=== PATIENT | female | born 1935 | race Caucasian/White ===

== ENCOUNTER → 2017-02-13 | Outpatient (CLI) | payer OTHER, MEDICARE ==
[~2017-02-13] MED LIST: AMLO-110 PO; ASPEC81 PO; CALCTAB7 PO; CHOL100010 PO; CLOT1CRE3 TOP; DICL-201 PO; IBUP-1451 PO; LORA-741 PO; LOSA50TA6 PO; METO-551 PO; OMEG12006 PO; PARO10TA4 PO; PRLSR20 PO; TRAM-10 PO; [UNRECOGNIZED DRUG - OTHER] TOP
--- NOTE | 2017-02-13 16:29 | MAMMOGRAPHY REPORT ---
BILATERAL DIGITAL SCREENING MAMMOGRAM WITH CAD: 02/13/2017 CLINICAL HISTORY: Routine screening. Patient has no complaints. TECHNIQUE: Bilateral CC and MLO views were obtained. Current study was also evaluated with a Comput er Aided Detection (CAD) system. COMPARISON: Comparison is made to exams dated: 09/11/2014 mammogram, 02/11/2016 mammogram, 3 mammogram, 09/09/2012 mammogram, 09/06/2011 mammogram, and 09/05/2010 mammogram - [facility]. BREAST COMPOSITION: There are scattered areas of fibroglandular density in both breasts. FINDINGS: There are mild vascular calcifications and scattered benign-appearing calcifications in th e breasts. No suspicious mass, architectural distortion or cluster of suspicious microcalcification s is seen. IMPRESSION: ACR BI-RADS CATEGORY 1: NEGATIVE There is no mammographic evidence of malignancy. A 1 year screening mammogram is recommended. The p atient will receive written notification of the results. Approximately 10% of breast cancers are not detected with mammography. A negative mammographic repor t should not delay biopsy if a clinically suggestive mass is present. Nelida Youssef M.D. ay/:02/13/2017 15:20:46 Inspector Of Dredging: Lilian FINK(Nicole)(Jeri), [facility] letter sent: Normal 1/2 BI-RADS Code: ACR BI-RADS Category 1: Negative
== END | disposition home or self-care (01) ==
LOC: C.MAMM 13:32
PROVIDERS: ATTEND Internal Medicine
DX: Z12.31 Encounter for screening mammogram for malignant neoplasm of breast (principal)

== ENCOUNTER → 2017-03-02 | Outpatient (CLI) | payer OTHER, MEDICARE ==
--- NOTE | 2017-03-02 08:38 | DIAGNOSTIC IMAGING REPORT ---
THORACIC SPINE 3 VIEWS ROUTINE CLINICAL HISTORY: UNSPECIFIED ABDOMINAL PAIN COMPARISON STUDY: Lumbar spine radiograph January 07, 2016 and chest radiographs August 28, 2015. FINDINGS: A thoracolumbar spine fusion is partially imaged. Mild loss of height of T12 is unchanged. An old T5 compression fracture is noted. No acute thoracic spine fractures identified. Msog-ls-tmabwody multilevel degenerative disc disease is present. IMPRESSION: 1. No acute thoracic spine fracture or subluxation. 2. Partially imaged spinal fusion. Old T5 and T12 compression fractures. Electronically signed by: Serge Mosher M.D. 03/02/2017 8:37 AM Dictated Date/Time: 03/02/2017 8:10 AM
--- NOTE | 2017-03-02 08:55 | DIAGNOSTIC IMAGING REPORT ---
ULTRASOUND ABDOMEN COMPLETE CLINICAL HISTORY: Generalized abdominal pain. COMPARISON STUDY: Abdominal CT dated 04/13/2016. TECHNIQUE: Real-time, grayscale, and color flow sonography of the abdomen was performed. Images are reviewed in the transverse and longitudinal planes. FINDINGS: Liver: The liver is normal in size and echotexture. There is no intrahepatic biliary ductal dilatation. There are scattered calcified hepatic granulomas. The main portal vein is patent. Gallbladder: The gallbladder is surgically absent. The common bile duct measures up to 0.6 cm in diameter. Pancreas: Visualized portions of the pancreatic head and body are normal in appearance. The splenic vein is patent. Spleen: The spleen is normal in size and echotexture, measuring 8.1 cm in length. Kidneys: The kidneys demonstrate cortical atrophy. There is no hydronephrosis. The right kidney measures 10.3 cm in length and the left kidney measures 10.4 cm in length. No shadowing calculi are identified. Scattered renal cysts measure up to 1.6 cm. Abdominal vasculature: Visualized portions of the abdominal aorta are normal in caliber noting atherosclerotic irregularity. The IVC is normal as imaged. Ascites: None. IMPRESSION: 1. No acute sonographic abnormality is identified. 2. Status post cholecystectomy. Electronically signed by: Armin Howard M.D. 03/02/2017 8:54 AM Dictated Date/Time: 03/02/2017 8:52 AM
== END | disposition home or self-care (01) ==
LOC: C.ULTR 07:46
PROVIDERS: ATTEND Internal Medicine Gastroenterology
DX: R10.9 Unspecified abdominal pain (principal); Z90.49 Acquired absence of other specified parts of digestive tract; Z98.1 Arthrodesis status

== ENCOUNTER → 2018-02-15 | Outpatient (CLI) | payer OTHER ==
--- NOTE | 2018-02-18 08:09 | MAMMOGRAPHY REPORT ---
BILATERAL DIGITAL SCREENING MAMMOGRAM TOMOSYNTHESIS WITH CAD: 02/15/2018 CLINICAL HISTORY: Routine screening. Patient has no complaints. TECHNIQUE: Breast tomosynthesis in addition to standard 2D mammography was performed. Current study was also evaluated with a Computer Aided Detection (CAD) system. COMPARISON: Comparison is made to exams dated: 02/13/2017 mammogram, 02/11/2016 mammogram, 09/11/2014 mammogram, 09/10/2013 mammogram, 09/09/2012 mammogram, and 09/06/2011 mammogram - [facility]. BREAST COMPOSITION: There are scattered areas of fibroglandular density in both breasts. FINDINGS: No suspicious masses, calcifications, or areas of architectural distortion are noted in ei ther breast. There has been no significant interval change compared to prior exams. Scattered bilater al benign-appearing calcifications are not significantly changed. Note that the left MLO views are s omewhat suboptimal as the patient could not tolerate proper positioning due to a frozen left shoulder ; note that pectoralis muscle is not visualized on the MLO views. IMPRESSION: ACR BI-RADS CATEGORY 2: BENIGN There is no mammographic evidence of malignancy. A 1 year screening mammogram is recommended. The pa tient will receive written notification of the results. Approximately 10% of breast cancers are not detected with mammography. A negative mammographic report should not delay biopsy if a clinically suggestive mass is present. Yasmin Anton M.D. /:02/15/2018 13:48:40 [employer]: Romelia FINK(Nicole)(Jeri)(SHASHANK), [facility] letter sent: Normal 1/2 BI-RADS Code: ACR BI-RADS Category 2: Benign
== END | disposition home or self-care (01) ==
LOC: C.MAMM 13:19
PROVIDERS: ATTEND Internal Medicine
DX: Z12.31 Encounter for screening mammogram for malignant neoplasm of breast (principal)

== ENCOUNTER 2019-12-30 02:25 | Inpatient (IN) ==
[2019-12-30] MEDS ORDERED: SODIUM CHLORIDE 0.9% 500 ML IV ONE (02:44)
[2019-12-30 03:14] LABS: Basophils # (auto) 0.01 K/uL (0-0.2); Basophils % (auto) 0.1 %; Eosinophils # (auto) 0.16 K/uL (0-0.5); Eosinophils % (auto) 1.4 %; Hematocrit (blood only) 28.3 % (37-47); Hemoglobin 9.5 g/dL (12.0-16.0); Immature Granulocytes # (auto) 0.02 K/uL (0.00-0.02); Immature Granulocytes % (auto) 0.2 %; Lymphocytes # (auto) 0.78 K/uL (1.2-3.4); Lymphocytes % (auto) 6.6 %; Mean Corpuscular Hemoglobin 29.1 pg (25-34); Mean Corpuscular Hgb Conc 33.6 g/dL (32-36); Mean Corpuscular Volume 86.5 fL (80-100); Mean Platelet Volume 9.9 fL (7.4-10.4); Monocytes # (auto) 0.65 K/uL (0.11-0.59); Monocytes % (auto) 5.5 %; Neutrophils # (auto) 10.15 K/uL (1.4-6.5); Neutrophils % (auto) 86.2 %; Platelet Count 267 K/uL (130-400); RDW Coefficient of Variation 13.1 % (11.5-14.5); RDW Standard Deviation 41.6 fL (36.4-46.3); Red Blood Count 3.27 M/uL (4.2-5.4); White Blood Count 11.77 K/uL (4.8-10.8)
[2019-12-30 03:32] LABS: Albumin Level 2.7 gm/dl (3.4-5.0); BUN Creatinine Ratio 14.6 (10-20); Bilirubin Direct 0.1 mg/dl (0-0.2); Calcium 8.5 mg/dl (8.5-10.1); Creatinine Clr Calc Pharmacy 43.3 ml/min; Est GFR (African American) 82.3; Magnesium 1.3 mg/dl (1.8-2.4); Potassium 3.9 mmol/L (3.5-5.1)
[2019-12-30 03:43] LABS: Bilirubin,Total 0.7 mg/dl (0.2-1); Total Protein 6.8 gm/dl (6.4-8.2); Troponin I 0.716 ng/ml (0-0.045)
[2019-12-30] MEDS ORDERED: CEFEPIME 2,000 MG/20 ML VIAL IV STA (03:44)
[2019-12-30] MEDS ORDERED: AZITHROMYCIN 500 MG in DEXTROSE 5% 250 ML IV ONE (03:44)
[2019-12-30] MEDS ORDERED: MAGNESIUM SULFATE / D5W 1 GM/100 ML BAG IV ONE (03:46)
[2019-12-30] MEDS ORDERED: ASPIRIN 81 MG CHEW PO STA (03:46)
[2019-12-30 04:17] LABS: Influenza A virus by PCR Neg for Influ A (Neg); Influenza B virus by PCR Neg for Influ B (Neg)
[2019-12-30 05:23] LABS: Appearance Urine Clear (Clear); Bacteria Urine Automated Negative (Negative); Bilirubin Urine Negative (Negative); Blood Urine Negative (Negative); Color Urine Yellow; Epithelial Cell Urine Auto >30 /lpf (0-5); Glucose Urine UA Negative (Negative); Ketones Urine Negative (Negative); Leukocyte Esterase Urine Trace (Negative); Nitrite Urine Negative (Negative); Protein Urine Trace (Negative); RBC Urine Automated 0-4 /hpf (0-4); Specific Gravity Urine 1.012 (1.000-1.030); Urobilinogen Urine Negative (Negative)
[2019-12-30] MEDS ORDERED: ACETAMINOPHEN 325 MG TAB PO PRN (05:46)
[2019-12-30] MEDS ORDERED: MAGNESIUM HYDROXIDE SUSP 30 ML UDC PO PRN (05:46)
[2019-12-30] MEDS ORDERED: METOPROLOL SUCC 25MG EXT REL TAB PO STA (05:46)
[2019-12-30] MEDS ORDERED: LORazepam 0.5 MG TAB PO PRN (05:46)
[2019-12-30] MEDS ORDERED: ONDANSETRON INJ 2 MG/ML 2 ML VIAL IV PRN (05:46)
[2019-12-30] MEDS ORDERED: NITROGLYCERIN SL 0.4 MG/TAB TAB SL PRN (05:46)
[2019-12-30] MEDS ORDERED: ALUMINUM/MAGNESIUM SUSP 30 ML UDC PO PRN (05:46)
[2019-12-30] MEDS ORDERED: Heparin IV Low Dose *NO* Bolus IV ONE (05:46)
--- NOTE | 2019-12-30 06:59 | History & Physical Report ---
Date of Service December 30, 2019 Assessment & Plan (1) Right lower lobe pneumonia: Patient was noted to have temperature 100.9, along with mild hypoxia. Continue cefepime IV and azithromycin IV begun in the ED. Nasal cannula oxygen, titrate to keep pulse ox 94 to 95%. Present on Admission?: Yes (2) Elevated troponin: Elevated troponin/lateral T wave inversions on EKG/CHF/volatile hypertension- The patient will be admitted to telemetry for serial cardiac enzymes, serial EKG's, cardiac rhythm monitoring and a 2-D echocardiogram with Dopplers. Start heparin drip low-dose without bolus, and follow per protocol. Hold labetalol, as she reports that she feels worse on labetalol and felt better on metoprolol. She reports that she had been on clonidine in the past also, but again reports that she feels better on metoprolol Give metoprolol succinate 25 mg p.o. x1 now, and then start 50 mg p.o. twice daily in the a.m. Continue losartan 50 mg p.o. twice daily. Continue aspirin 81 mg daily. Consult cardiology. Present on Admission?: Yes (3) Acute electrocardiogram changes: See above Present on Admission?: Yes (4) CHF (congestive heart failure): See above Present on Admission?: Yes (5) Hypomagnesemia: Magnesium 1.3 upon admission. Replace both orally and IV. Repeat laboratories in a.m. Present on Admission?: Yes (6) Hyperlipidemia LDL goal <70: Continue atorvastatin 80 mg daily Present on Admission?: Yes (7) GERD (gastroesophageal reflux disease): Change omeprazole to famotidine 20 mg p.o. every 12 hours. Question whether the omeprazole may be contributing to her low magnesium Present on Admission?: Yes (8) Depression: Continue Paxil 10 mg p.o. daily Present on Admission?: Yes (9) Insomnia: Continue lorazepam 0.5 mg p.o. at bedtime as needed Present on Admission?: Yes History of Present Illness Chief Complaint: The patient presents to the emergency department with family, with generalized weakness, fatigue, chest discomfort and abdominal discomfort, with volatile blood pressure. Primary Care Provider: Bhavesh Jack MD The patient is an 84-year-old female with a past medical history including hyperlipidemia, CHF, hypomagnesemia, lumbar stenosis with neurogenic claudication, thoracic compression fracture and insomnia. She presents to the emergency department the above symptoms. In the ED she had a temperature of 100.9, with the patient was unaware of. She reports that she has had difficulty adjusting to some recent blood pressure changes, and traces her recent issues with blood pressure volatility back to timing around the time of Carotid Doppler studies that were performed. Allergies Allergy/AdvReac Type Severity Reaction Status Date / Time adhesive Allergy Unknown RED Verified 12/30/19 02:29 atenolol Allergy Unknown Unknown Verified 12/30/19 02:29 codeine Allergy Unknown Unknown Verified 12/30/19 02:29 indapamide Allergy Unknown Unknown Verified 12/30/19 02:29 Iodinated Contrast Media Allergy Unknown ` Verified 12/30/19 02:29 lisinopril Allergy Unknown Unknown Verified 12/30/19 02:29 nickel Allergy Unknown ALLERGY TO Verified 12/30/19 02:29 "METAL" nifedipine Allergy Unknown Unknown Verified 12/30/19 02:29 verapamil Allergy Unknown Unknown Verified 12/30/19 02:29 hydromorphone AdvReac Severe HALLUCINATI Verified 12/30/19 02:29 ON morphine AdvReac Unknown NAUSEA Verified 12/30/19 02:29 Home Medications Home Medications Medication Instructions Recorded Confirmed Type aspirin [Aspir-Low] 81 mg PO DAILY 10/04/18 12/30/19 History calcium carbonate-vitamin D3 2 tab PO DAILY 10/04/18 12/30/19 History [Caltrate 600 + D] ibuprofen 200 mg PO DAILY PRN 10/04/18 12/30/19 History lorazepam [Ativan] 0.5 mg PO HS PRN 10/04/18 12/30/19 History losartan [Cozaar] 50 mg PO BID 10/04/18 12/30/19 History omeprazole 20 mg PO DAILY 10/04/18 12/30/19 History paroxetine HCl [Paxil] 10 mg PO DAILY 10/04/18 12/30/19 History atorvastatin 80 mg PO DAILY 12/30/19 12/30/19 History labetalol 100 mg PO BID 12/30/19 12/30/19 History Past Med/Surg History Medical History Abdominal hernia (Chronic) Lumbar stenosis with neurogenic claudication (Acute) Right leg pain (Acute) Thoracic compression fracture (Acute) Surgical History Hx of cholecystectomy (Resolved) Family History Other FHx: heart disease FHx: hypertension Social History Preferred Language: Arabic Communication Ability: Effective Heavy Line Technician Required: No Beliefs That Will Affect Care: None Current Living Situation: Alone Other Information That Helps Us Care for You: No Feels Safe at Home: Yes Safety Concerns: Feels Safe At This Time Smoking Status: Never smoker Do You Dip or Chew Tobacco: No ; Second Hand Exposure: No ; Hx Alcohol Use: No Hx Substance Use: No Review of Systems Review of Systems: The patient denies chest pain, palpitations, shortness of breath, dyspnea on exertion, cough, lower extremity swelling, sore throat, fevers, chills, sweats, vomiting, diarrhea , constipation, blood in urine or stool, dysuria, urinary frequency or urgency, headache, loss of consciousness, rash, abnormal bruising or bleeding, focal weakness, numbness or tingling in arms or legs, generalized arthralgias or myalgias, or night sweats. The review of systems is otherwise negative other than for that already noted above, and at least 10 systems have been reviewed. Physical Exam Physical Exam: The patient is awake, alert and oriented 3, well developed and well nourished, normocephalic and atraumatic, lying in bed and in no acute distress. HEENT--PERRL, EOMI, mucous membranes and oropharynx dry. Neck--supple. No JVD. No bruits. Thyroid normal, trachea midline, no adenopathy. Heart--normal S1 and S2. No murmurs, rubs or gallops. Lungs--decreased breath sounds at the bases bilaterally. No respiratory distress, no accessory muscle use. Abdomen--normal bowel sounds and soft. Nontender. Nondistended. Extremities--no cyanosis or clubbing. No edema. Dermatologic--normal skin turgor, normal color, no abnormal lymph nodes, no rash. Neurologic--cranial nerves II through XII grossly intact. Rheumatologic--normal range of motion. Psychiatric--normal affect. Results & Data Vital Signs (Past 12 Hours) Vital Signs Temp Pulse Resp BP Pulse Ox 12/30/19 05:10 98.2 F 20 92 12/30/19 04:59 80 18 156/67 H 95 12/30/19 04:30 84 27 H 139/98 95 12/30/19 04:00 85 26 H 178/87 H 94 12/30/19 03:31 83 23 167/70 H 96 12/30/19 03:30 83 27 H 96 12/30/19 03:12 92 12/30/19 03:00 86 26 H 160/66 H 96 12/30/19 02:35 88 31 H 93 12/30/19 02:33 100.9 F H 88 20 188/90 H 94 Laboratory Results Laboratory Results WBC 11.77 K/uL (4.8-10.8) H 12/30/19 03:02 RBC 3.27 M/uL (4.2-5.4) L 12/30/19 03:02 Hgb 9.5 g/dL (12.0-16.0) L 12/30/19 03:02 Hct 28.3 % (37-47) L 12/30/19 03:02 MCV 86.5 fL (80-100) 12/30/19 03:02 MCH 29.1 pg (25-34) 12/30/19 03:02 MCHC 33.6 g/dL (32-36) 12/30/19 03:02 RDW Std Deviation 41.6 fL (36.4-46.3) 12/30/19 03:02 RDW Coeff of Shara 13.1 % (11.5-14.5) 12/30/19 03:02 Plt Count 267 K/uL (130-400) 12/30/19 03:02 MPV 9.9 fL (7.4-10.4) 12/30/19 03:02 Immature Gran % (Auto) 0.2 % 12/30/19 03:02 Neut % (Auto) 86.2 % 12/30/19 03:02 Lymph % (Auto) 6.6 % 12/30/19 03:02 [place] % (Auto) 5.5 % 12/30/19 03:02 Eos % (Auto) 1.4 % 12/30/19 03:02 Baso % (Auto) 0.1 % 12/30/19 03:02 Immature Gran # (Auto) 0.02 K/uL (0.00-0.02) 12/30/19 03:02 Neut # (Auto) 10.15 K/uL (1.4-6.5) H 12/30/19 03:02 Lymph # (Auto) 0.78 K/uL (1.2-3.4) L 12/30/19 03:02 [place] # (Auto) 0.65 K/uL (0.11-0.59) H 12/30/19 03:02 Eos # (Auto) 0.16 K/uL (0-0.5) 12/30/19 03:02 Baso # (Auto) 0.01 K/uL (0-0.2) 12/30/19 03:02 Sodium 136 mmol/L (136-145) 12/30/19 03:02 Potassium 3.9 mmol/L (3.5-5.1) 12/30/19 03:02 Chloride 105 mmol/L (98-107) 12/30/19 03:02 Carbon Dioxide 26 mmol/L (21-32) 12/30/19 03:02 Anion Gap 5.0 (3-11) 12/30/19 03:02 BUN 11 mg/dl (7-18) 12/30/19 03:02 Creatinine 0.76 mg/dl (0.6-1.2) 12/30/19 03:02 Est Cr Clr Drug Dosing 43.3 ml/min 12/30/19 03:02 Est GFR ( Amer) 82.3 12/30/19 03:02 Est GFR (Non-Af Amer) 71.0 12/30/19 03:02 BUN/Creatinine Ratio 14.6 (10-20) 12/30/19 03:02 Glucose 123 mg/dl (70-99) H 12/30/19 03:02 Lactate 0.8 mmol/L (0.4-2.0) 12/30/19 03:15 Calcium 8.5 mg/dl (8.5-10.1) 12/30/19 03:02 Magnesium 1.3 mg/dl (1.8-2.4) L 12/30/19 03:02 Total Bilirubin 0.7 mg/dl (0.2-1) 12/30/19 03:02 Direct Bilirubin 0.1 mg/dl (0-0.2) 12/30/19 03:02 AST 14 U/L (15-37) L 12/30/19 03:02 ALT 19 U/L (12-78) 12/30/19 03:02 Alkaline Phosphatase 52 U/L (45-117) 12/30/19 03:02 Troponin I 0.716 ng/ml (0-0.045) H* 12/30/19 03:02 NT-Pro-B Natriuret Pep 6138 pg/ml (0-1800) H 12/30/19 03:02 Total Protein 6.8 gm/dl (6.4-8.2) 12/30/19 03:02 Albumin 2.7 gm/dl (3.4-5.0) L 12/30/19 03:02 Urine Color Yellow 12/30/19 04:55 Urine Appearance Clear (Clear) 12/30/19 04:55 Urine pH 7.0 (4.5-7.5) 12/30/19 04:55 Ur Specific [place] 1.012 (1.000-1.030) 12/30/19 04:55 Urine Protein Trace (Negative) H 12/30/19 04:55 Urine Glucose (UA) Negative (Negative) 12/30/19 04:55 Urine Ketones Negative (Negative) 12/30/19 04:55 Urine Blood Negative (Negative) 12/30/19 04:55 Urine Nitrite Negative (Negative) 12/30/19 04:55 Urine Bilirubin Negative (Negative) 12/30/19 04:55 Urine Urobilinogen Negative (Negative) 12/30/19 04:55 Ur Leukocyte Esterase Trace (Negative) H 12/30/19 04:55 Urine WBC (Auto) 1-5 /hpf (0-5) 12/30/19 04:55 Urine RBC (Auto) 0-4 /hpf (0-4) 12/30/19 04:55 U Hyaline Cast (Auto) 1-5 /lpf (0-5) 12/30/19 04:55 U Epithel Cells (Auto) >30 /lpf (0-5) H 12/30/19 04:55 Urine Bacteria (Auto) Negative (Negative) 12/30/19 04:55 Influenza Type A (PCR) Neg for Influ A (Neg) 12/30/19 03:15 Influenza Type B (PCR) Neg for Influ B (Neg) 12/30/19 03:15 Code Status & VTE Plan Code Status Full code VTE Prophylaxis Plan VTE Prophylaxis will be ordered: Yes PG Care Time/CCT Total # of Minutes Spent Total Time Spent with Patient: Total time spent is greater than 50% in coordination of care (as documented) at patient's floor/unit and/or counseling patient: Coding Level of Care Code 59191 Initial Inpt Care Lvl 3 Diagnoses Right lower lobe pneumonia J18.9 Pneumonia type: due to unspecified organism Elevated troponin R79.89 Acute electrocardiogram changes R94.31 CHF (congestive heart failure) I50.9 Heart failure chronicity: unspecified Heart failure type: unspecified Hypomagnesemia E83.42 Hyperlipidemia LDL goal <70 E78.5 GERD (gastroesophageal reflux disease) K21.9 Depression F32.9 Insomnia G47.00 (1) Right lower lobe pneumonia Pneumonia type: due to unspecified organism Qualified Code(s): J18.9 - Pneumonia, unspecified organism (2) CHF (congestive heart failure) Heart failure chronicity: unspecified Heart failure type: unspecified Qualified Code(s): I50.9 - Heart failure, unspecified
[2019-12-30] MEDS: MAGNESIUM SULFATE / D5W 1 GM/100 ML BAG IV SCH ×2 (07:35→08:40)
--- NOTE | 2019-12-30 07:39 | XRay Report ---
SINGLE VIEW CHEST CLINICAL HISTORY: Dyspnea. FINDINGS: An AP, portable, upright chest radiograph is compared to study dated 01/07/2016. The examina tion is degraded by portable technique, apical lordotic positioning, and patient rotation. The heart is enlarged noting atherosclerotic calcification of the thoracic aorta. There is pulmonary vascular c ongestion. Dependent airspace opacities likely represent atelectasis. Trace pleural effusions are marito pected. No pneumothorax is seen. The skeletal structures are osteopenic. The bony thorax is grossly i ntact. Advanced degenerative change and deformity is noted in the left shoulder. Degenerative change is also seen in the thoracic spine. Fusion hardware is noted at the thoracolumbar junction. IMPRESSION: Cardiomegaly with evidence of congestive failure. ACT 112: Negative or not required by law. Electronically signed by: Armin Howard M.D. 12/30/2019 7:37 AM
[2019-12-30] MEDS ORDERED: HEPARIN SODIUM/DEXTROSE 25,000 UNITS/500 ML BAG IV SCH (08:00)
[2019-12-30] MEDS: Heparin IV Low Dose *NO* Bolus IV SCH ×2 (08:04→08:05)
[2019-12-30] MEDS ORDERED: FUROSEMIDE 40 MG in SYRINGE 0 ML IV ONE (08:15)
[2019-12-30] MEDS: CALCIUM 600MG + VIT D 400 IU TAB PO SCH (08:48)
[2019-12-30] MEDS: ATORVASTATIN 40 MG TAB PO SCH (08:49)
[2019-12-30] MEDS: LOSARTAN POTASSIUM 50 MG TAB PO SCH ×2 (08:49→20:42)
[2019-12-30] MEDS: FAMOTIDINE 20 MG TAB PO SCH ×2 (08:50→20:42)
[2019-12-30] MEDS: PARoxetine HCL 10 MG TAB PO SCH (08:50)
[2019-12-30] MEDS ORDERED: ASPIRIN 81 MG ECTAB PO SCH (09:00)
[2019-12-30] MEDS: METOPROLOL SUCC 50MG EXT REL TAB PO SCH ×2 (10:03→20:42)
--- NOTE | 2019-12-30 10:57 | Electrocardiogram Report ---
Test Reason : Blood Pressure : / mmHG Vent. Rate : 088 BPM Atrial Rate : 088 BPM P-R Int : 150 ms QRS Dur : 084 ms QT Int : 372 ms P-R-T Axes : 036 007 002 degrees QTc Int : 450 ms Normal sinus rhythm Possible Anterior infarct , age undetermined Abnormal ECG When compared with ECG of 10-JUN-2019 15:24, Nonspecific T wave abnormality now evident in Inferior leads T wave inversion now evident in Anterolateral leads Confirmed by Yakov Pedersen ([id number]) on 12/30/2019 10:57:20 AM Referred By: REFERRED SELF Confirmed By:Yakov Pedersen
--- NOTE | 2019-12-30 11:35 | Cardiology Consultation ---
Date of Consultation December 30, 2019 Assessment & Plan (1) Elevated troponin: Minor troponin elevation likely a supply demand mismatch. She was significantly hypertensive at time of presentation. Would check an echocardiogram. (2) Abnormal ECG: Anterolateral T-wave abnormality identified at time of presentation. As above, would check an echocardiogram. Suspect she has a degree of left ventricular hypertrophy. (3) Hyperlipidemia LDL goal <70: Continue atorvastatin. (4) Vascular disease: She has a history of both cerebrovascular and peripheral vascular disease. Continue medical management. History of Present Illness Attending Physician: Brandon Velazco DO History of Present Illness Mrs. Ramon is an 84-year-old female admitted earlier today with shortness of breath and the community-acquired pneumonia. Her troponin I level was mildly, however, this consultation was ordered. Of note, patient follows with Dr. Jack an outpatient. The patient was in her usual state of health until the morning prior to admission when she began to note a cough and some exertional dyspnea. Her symptoms continued throughout the day, however, she was able to go to bed last evening without difficulty. Specifically, she was able lie supine using just 1 pillow. However, she awoke at 2:30 a.m. with dyspnea and cough. She presented to the emergency room for further care. On arrival here, the patient was placed on supplemental oxygen and was noted to have a blood pressure of 190s over 90s. Chest x-ray revealed a right lower lobe pneumonia and she was started on intravenous antibiotics. A troponin level was mildly elevated at 0.716. The patient has never experienced exertional chest pain. She further denies syncope, presyncope, PND, orthopnea, palpitations, lower extremity edema, and claudication. The patient has never known of a cardiac event. She has never had a cardiac catheterization. Currently, patient is resting comfortably in bed and without complaints. Past medical and surgical history 1. Hypertension 2. Hypercholesterolemia 3. Presumed diastolic CHF 4. Peripheral vascular disease 5. Chronic renal failure 6. Cerebral vascular disease-50% left, 70% right carotid stenoses 7. Depression 8. Bilateral TKR 9. Cholecystectomy 10. Tonsillectomy Social history , lives alone Retired nurse No tobacco or alcohol Family history Mother at 86 from a CVA Father at 80 from emphysema Brother at 85 from an [place] Review of systems A 10 point review of systems was negative except for that described above. Allergies Allergy/AdvReac Type Severity Reaction Status Date / Time adhesive Allergy Unknown RED Verified 12/30/19 02:29 atenolol Allergy Unknown Unknown Verified 12/30/19 02:29 codeine Allergy Unknown Unknown Verified 12/30/19 02:29 indapamide Allergy Unknown Unknown Verified 12/30/19 02:29 Iodinated Contrast Media Allergy Unknown ` Verified 12/30/19 02:29 lisinopril Allergy Unknown Unknown Verified 12/30/19 02:29 nickel Allergy Unknown ALLERGY TO Verified 12/30/19 02:29 "METAL" nifedipine Allergy Unknown Unknown Verified 12/30/19 02:29 verapamil Allergy Unknown Unknown Verified 12/30/19 02:29 Latex, Natural Rubber Allergy Rash Verified 12/30/19 07:32 hydromorphone AdvReac Severe HALLUCINATI Verified 12/30/19 02:29 ON morphine AdvReac Unknown NAUSEA Verified 12/30/19 02:29 Home Medications Home Medications Medication Instructions Recorded Confirmed Type aspirin [Aspir-Low] 81 mg PO DAILY 10/04/18 12/30/19 History calcium carbonate-vitamin D3 2 tab PO DAILY 10/04/18 12/30/19 History [Caltrate 600 + D] ibuprofen 200 mg PO DAILY PRN 10/04/18 12/30/19 History lorazepam [Ativan] 0.5 mg PO HS PRN 10/04/18 12/30/19 History losartan [Cozaar] 50 mg PO BID 10/04/18 12/30/19 History omeprazole 20 mg PO DAILY 10/04/18 12/30/19 History paroxetine HCl [Paxil] 10 mg PO DAILY 10/04/18 12/30/19 History atorvastatin 80 mg PO DAILY 12/30/19 12/30/19 History labetalol 100 mg PO BID 12/30/19 12/30/19 History Patient History Medical History (Updated 12/30/19 @ 12:02 by Yakov Pedersen MD) Abdominal hernia (Chronic) Depression GERD (gastroesophageal reflux disease) Hyperlipidemia LDL goal <70 Insomnia Lumbar stenosis with neurogenic claudication (Acute) Right leg pain (Acute) Thoracic compression fracture (Acute) Surgical History Hx of cholecystectomy (Resolved) Family History Other FHx: heart disease FHx: hypertension Social History Preferred Language: Maltese Communication Ability: Effective Gizzard Skin Remover Required: No Beliefs That Will Affect Care: None Current Living Situation: Alone Other Information That Helps Us Care for You: No Feels Safe at Home: Yes Safety Concerns: Feels Safe At This Time Smoking Status: Never smoker Do You Dip or Chew Tobacco: No ; Second Hand Exposure: No ; Hx Alcohol Use: No Hx Substance Use: No Physical Exam Physical Exam: In general this is a well-developed well-nourished white female in no acute distress. HEENT exam is negative. Neck is supple with full carotid upstrokes. There are no obvious carotid bruits. Jugular venous pressure is flat at 90. There is no thyromegaly. Cardiovascular exam reveals a regular rhythm with a normal S1 and S2. Heart sounds are distant. No obvious murmurs. Lungs note crackles at the right base. Abdomen is soft and nontender without bruits. Extremities reveal intact radial artery pulses bilaterally. There is no peripheral edema. Results & Data ([facility]) Vital Signs (Past 12 Hours) Vital Signs Temp Pulse Pulse Resp BP BP Pulse Ox 12/30/19 11:01 36.7 C 72 18 152/74 H 96 12/30/19 10:00 71 143/60 H 12/30/19 08:27 36.9 C 76 18 133/74 97 12/30/19 07:29 81 12/30/19 07:22 84 12/30/19 05:10 36.8 C 20 92 12/30/19 04:59 80 18 156/67 H 95 12/30/19 04:30 84 27 H 139/98 95 12/30/19 04:00 85 26 H 178/87 H 94 12/30/19 03:31 83 23 167/70 H 96 12/30/19 03:30 83 27 H 96 12/30/19 03:12 92 12/30/19 03:00 86 26 H 160/66 H 96 12/30/19 02:35 88 31 H 93 12/30/19 02:33 38.3 C H 88 20 188/90 H 94 Laboratory Results CBC notes hemoglobin of 9.5, hematocrit of 28.3, white count 11.7, and platelet count of 129231. Electrolytes note a sodium of 136, potassium 3.9, chloride 105, bicarb 26, BUN 11, creatinine 0.76, glucose of 123. Initial troponin was 0.716 with a follow-up of 0.764. ProBNP is elevated 6138. Diagnostic Findings EKG notes normal sinus rhythm and an anterolateral T-wave abnormality. Chest x- ray notes a right lower lobe infiltrate. PG Care Time/CCT Total # of Minutes Spent Total Time Spent with Patient: Total time spent is greater than 50% in coordination of care (as documented) at patient's floor/unit and/or counseling patient: Coding Level of Care Code 40390 Initial Inpt Care Lvl 3 Diagnoses Elevated troponin R79.89 Abnormal ECG R94.31 Hyperlipidemia LDL goal <70 E78.5 Vascular disease I99.9
--- NOTE | 2019-12-30 12:23 | XCELERA ---
[id number] \\[email or web address]_[email or web address]\[id number]
[2019-12-30 13:57] LABS: Basophils # (auto) 0.02 K/uL (0-0.2); Basophils % (auto) 0.2 %; Eosinophils # (auto) 0.26 K/uL (0-0.5); Eosinophils % (auto) 2.5 %; Hematocrit (blood only) 27.6 % (37-47); Hemoglobin 9.3 g/dL (12.0-16.0); Immature Granulocytes # (auto) 0.03 K/uL (0.00-0.02); Immature Granulocytes % (auto) 0.3 %; Lymphocytes # (auto) 1.19 K/uL (1.2-3.4); Lymphocytes % (auto) 11.5 %; Mean Corpuscular Hemoglobin 29.5 pg (25-34); Mean Corpuscular Hgb Conc 33.7 g/dL (32-36); Mean Corpuscular Volume 87.6 fL (80-100); Mean Platelet Volume 9.7 fL (7.4-10.4); Monocytes # (auto) 0.67 K/uL (0.11-0.59); Monocytes % (auto) 6.5 %; Neutrophils # (auto) 8.19 K/uL (1.4-6.5); Platelet Count 268 K/uL (130-400); RDW Standard Deviation 42.1 fL (36.4-46.3); Red Blood Count 3.15 M/uL (4.2-5.4); White Blood Count 10.36 K/uL (4.8-10.8)
--- NOTE | 2019-12-30 14:29 | History & Physical Bridge Note ---
Date of Service December 30, 2019 History & Physical Bridge Note I have examined the patient, reviewed the History & Physical and in the interval since the performance of the History & Physical I have noted the following changes of clinical significance: patient feeling better, breathing easier, able to lay flat says that she started to feel short of breath yesterday, got worse last night says that her weight was 147lbs two weeks ago, up to 152lbs more recently never noticed edema she did not have a cough and although a temperature of 38.3 was recorded, she did not feel feverish symptoms seem to fit more with acute heart failure continue abx for now, repeat CBC and procalcitonin pending check CXR and BNP in the morning, check weight, fluid restrict
[2019-12-30] MEDS: CEFEPIME 2,000 MG in SYRINGE 7.5 ML IV SCH (16:57)
[2019-12-31] MEDS: CEFEPIME 2,000 MG in SYRINGE 7.5 ML IV SCH (03:09)
[2019-12-31] MEDS ORDERED: AZITHROMYCIN 500 MG in DEXTROSE 5% 250 ML IV SCH (06:00)
[2019-12-31 06:44] LABS: Basophils # (auto) 0.02 K/uL (0-0.2); Basophils % (auto) 0.2 %; Eosinophils # (auto) 0.28 K/uL (0-0.5); Eosinophils % (auto) 3.1 %; Hematocrit (blood only) 28.2 % (37-47); Hemoglobin 9.5 g/dL (12.0-16.0); Immature Granulocytes # (auto) 0.02 K/uL (0.00-0.02); Immature Granulocytes % (auto) 0.2 %; Lymphocytes # (auto) 1.03 K/uL (1.2-3.4); Lymphocytes % (auto) 11.2 %; Mean Corpuscular Hemoglobin 29.6 pg (25-34); Mean Corpuscular Hgb Conc 33.7 g/dL (32-36); Mean Corpuscular Volume 87.9 fL (80-100); Mean Platelet Volume 9.8 fL (7.4-10.4); Monocytes # (auto) 0.62 K/uL (0.11-0.59); Monocytes % (auto) 6.8 %; Neutrophils # (auto) 7.21 K/uL (1.4-6.5); Neutrophils % (auto) 78.5 %; Platelet Count 282 K/uL (130-400); RDW Standard Deviation 42.2 fL (36.4-46.3); Red Blood Count 3.21 M/uL (4.2-5.4); White Blood Count 9.18 K/uL (4.8-10.8)
[2019-12-31 07:18] LABS: Albumin Level 2.6 gm/dl (3.4-5.0); BUN Creatinine Ratio 15.7 (10-20); Calcium 8.8 mg/dl (8.5-10.1); Creatinine Clr Calc Pharmacy 36.4 ml/min; Est GFR (African American) 69.9; Est GFR (Non-African American) 60.3; Potassium 3.8 mmol/L (3.5-5.1)
[2019-12-31 07:22] LABS: Phosphorus 3.6 mg/dl (2.5-4.9)
--- NOTE | 2019-12-31 07:46 | XRay Report ---
SINGLE VIEW CHEST CLINICAL HISTORY: Dyspnea. FINDINGS: An AP, portable, upright chest radiograph is compared to study dated 12/30/2019. The examinat ion is degraded by portable technique, apical lordotic positioning, and patient rotation. The heart i s enlarged noting atherosclerotic calcification of the thoracic aorta. There is pulmonary vascular co ngestion. Dependent airspace opacities likely represent atelectasis. Trace pleural effusions are susp ected. No pneumothorax is seen. The skeletal structures are osteopenic. The bony thorax is grossly in tact. Advanced degenerative change and deformity is noted in the left shoulder. Degenerative change i s also seen in the thoracic spine. Fusion hardware is noted at the thoracolumbar junction. IMPRESSION: Cardiomegaly with evidence of congestive failure. This is similar in appearance to yester day. ACT 112: Negative or not required by law. Electronically signed by: Armin Howard M.D. 12/31/2019 7:44 AM
[2019-12-31] MEDS ORDERED: FUROSEMIDE 40 MG TAB PO ONE ×2 (08:13→14:00)
[2019-12-31] MEDS: ASPIRIN 81 MG ECTAB PO SCH (08:39)
[2019-12-31] MEDS: PARoxetine HCL 10 MG TAB PO SCH (08:39)
[2019-12-31] MEDS: METOPROLOL SUCC 50MG EXT REL TAB PO SCH ×2 (08:39→20:17)
[2019-12-31] MEDS: CALCIUM 600MG + VIT D 400 IU TAB PO SCH (08:39)
[2019-12-31] MEDS: FAMOTIDINE 20 MG TAB PO SCH ×2 (08:39→20:17)
[2019-12-31] MEDS: ATORVASTATIN 40 MG TAB PO SCH (08:39)
[2019-12-31] MEDS: LOSARTAN POTASSIUM 50 MG TAB PO SCH ×2 (08:40→20:17)
--- NOTE | 2019-12-31 10:24 | Hospitalist Progress Note ---
Date of Service December 31, 2019 Assessment & Plan (1) Acute on chronic heart failure with normal ejection fraction: diuresed 1.4 liters so far after Lasix 40mg IV given yesterday morning BNP trending down will give Lasix 40mg PO BID today, follow UO fluid restriction, daily weight, low sodium diet d/w cardiology, agree with plan likely home tomorrow, would benefit from daily Lasix to maintain euvolemia (2) Elevated troponin: not significant according to cardiology, this is just elevated troponin, NOT demand ischemic, NOT NSTEMI continue metoprolol succinate Continue losartan 50 mg p.o. twice daily. Continue aspirin 81 mg daily. cardiology consult appreciated heparin drip stopped on 12/29 (3) Hypomagnesemia: Magnesium 1.3 upon admission. replaced, resolved (4) Hyperlipidemia LDL goal <70: Continue atorvastatin 80 mg daily (5) GERD (gastroesophageal reflux disease): Change omeprazole to famotidine 20 mg p.o. every 12 hours. Question whether the omeprazole may be contributing to her low magnesium (6) Depression: Continue Paxil 10 mg p.o. daily (7) Insomnia: Continue lorazepam 0.5 mg p.o. at bedtime as needed (8) Right lower lobe pneumonia: initially on antibiotics due to temperature of 100.9 CXR more consistent with pulmonary edema procalcitonin normal, WBC normal, no further fevers, could have been outlier will stop antibiotics Pneumonia ruled out Admission and Anticipated Discharge Date Admission Date: December 30, 2019 Anticipated date of discharge: 01/01/20 Subjective patient breathing much better today after diuresis weight is down to 152 lbs, but per the patient she was 146 lbs two weeks ago she responded quite well to Lasix 40mg IV yesterday will give her Lasix 40mg PO BID today CXR today still shows pulmonary edema, BNP down slightly procalcitonin was negative, will stop antibiotics labs show WBC 9k, Hb 9.5, Cr 0.87 and K is 3.8 discussed getting PT/OT evburke, hoping to go home tomorrow d/w Dr. Pedersen, he agrees with the plan Review of Systems Review of Systems: All systems reviewed & are unremarkable except as noted in HPI & below Constitutional: no fever, no chills, no fatigue and no weakness Respiratory: + dyspnea on exertion; no cough and no dyspnea Cardiovascular: + edema (trace bilaterally); no chest pain Gastrointestinal: no abdominal pain, no nausea, no vomiting, no constipation a nd no diarrhea/loose stools Physical Exam Constitutional: WD/WN, vitals as above Eyes: PERRL, conjunctivae normal, anicteric sclerae ENMT: external ear and nose normal, oropharynx normal Neck: trachea midline, no thyromegaly Respiratory: normal respiratory effort, lungs clear to auscultation Cardiovascular: Rate/Rhythm: regular rate and regular rhythm Heart Sounds: normal S1 and normal S2; no murmur Extremities: normal capillary refill and + edema (trace bilaterally) Gastrointestinal (Abdomen): normal bowel sounds, soft, nontender, no hepatosplenomegaly Musculoskeletal: no cyanosis or clubbing, extremities motor strength 5/5 Skin: no rashes, warm and dry Neurologic: patellar DTR's 2+ bilat, sensation intact and PERRL, EOMI, accommodation nl, no face palsy, no dysarthria Psychiatric: A+Ox3, euthymic affect Lymphatic: no cervical or axillary lymphadenopathy Results & Data ([facility]) Vital Signs (Past 12 Hours) Vital Signs Temp Pulse Pulse Resp BP BP Pulse Ox 12/31/19 08:07 75 12/31/19 07:54 36.7 C 75 20 111/57 L 90 12/31/19 04:21 36.7 C 95 H 20 187/78 H 95 12/31/19 01:44 77 12/30/19 23:16 36.5 C 74 16 181/75 H 94 Laboratory Results Laboratory Results - last 24 hr 12/30/19 12/31/19 12/31/19 21:39 06:03 06:03 WBC 9.18 RBC 3.21 L Hgb 9.5 L Hct 28.2 L MCV 87.9 MCH 29.6 MCHC 33.7 RDW Std Deviation 42.2 RDW Coeff of Shara 13.0 Plt Count 282 MPV 9.8 Immature Gran % (Auto) 0.2 Neut % (Auto) 78.5 Lymph % (Auto) 11.2 [place] % (Auto) 6.8 Eos % (Auto) 3.1 Baso % (Auto) 0.2 Immature Gran # (Auto) 0.02 Neut # (Auto) 7.21 H Lymph # (Auto) 1.03 L [place] # (Auto) 0.62 H Eos # (Auto) 0.28 Baso # (Auto) 0.02 Sodium 136 Potassium 3.8 Chloride 105 Carbon Dioxide 25 Anion Gap 7.0 BUN 14 Creatinine 0.87 Est Cr Clr Drug Dosing 36.4 Est GFR ( Amer) 69.9 Est GFR (Non-Af Amer) 60.3 BUN/Creatinine Ratio 15.7 Glucose 113 H Calcium 8.8 Phosphorus 3.6 Troponin I 0.633 H* NT-Pro-B Natriuret Pep 5511 H Albumin 2.6 L Medications Administered Current Inpatient Medications Acetaminophen (Tylenol) 650 mg PO Q4H PRN PRN Reason: Pain or Fever Stop: 01/29/20 05:45 Al Hydrox/Mg Hydrox/Simethicone (Maalox) 15 ml PO Q4H PRN PRN Reason: Dyspepsia Stop: 01/29/20 05:45 Aspirin (Ecotrin Ectab) 81 mg PO DAILY [facility] Stop: 01/30/20 08:59 Last Admin: 12/31/19 08:39 Dose: 81 mg Documented by: Atorvastatin Calcium (Lipitor) 80 mg PO DAILY [facility] Stop: 01/29/20 08:59 Last Admin: 12/31/19 08:39 Dose: 80 mg Documented by: Famotidine (Pepcid) 20 mg PO BID [facility] Stop: 01/29/20 08:59 Last Admin: 12/31/19 08:39 Dose: 20 mg Documented by: Lorazepam (Ativan) 0.5 mg PO HS PRN PRN Reason: Anxiety Stop: 01/29/20 05:45 Losartan Potassium (Cozaar) 50 mg PO BID [facility] Stop: 01/29/20 08:59 Last Admin: 12/31/19 08:40 Dose: 50 mg Documented by: Magnesium Hydroxide (Milk Of Magnesia) 30 ml PO Q12H PRN PRN Reason: Constipation Stop: 01/29/20 05:45 Metoprolol Succinate (Toprol Xl) 50 mg PO BID [facility] Stop: 01/29/20 08:59 Last Admin: 12/31/19 08:39 Dose: 50 mg Documented by: Multivitamins/Minerals (Caltrate Plus) 2 tab PO DAILY [facility] Stop: 01/29/20 08:59 Last Admin: 12/31/19 08:39 Dose: 2 tab Documented by: Nitroglycerin (Nitrostat) 0.4 mg SL UD PRN PRN Reason: Chest Pain Stop: 01/29/20 05:45 Ondansetron HCl (Zofran) 4 mg IV Q6H PRN PRN Reason: Nausea Stop: 01/29/20 05:45 Paroxetine HCl (Paroxetine Hcl) 10 mg PO DAILY [facility] Stop: 01/29/20 08:59 Last Admin: 12/31/19 08:39 Dose: 10 mg Documented by: PG Care Time/CCT Total # of Minutes Spent Total Time Spent: 36 Total Time Spent with Patient: Total time spent is greater than 50% in coordination of care (as documented) at patient's floor/unit and/or counseling patient: Coding Level of Care Code 28873 Subseq Hosp Care Lvl 3 Diagnoses Acute on chronic heart failure with normal ejection fraction I50.33 Elevated troponin R79.89 Hypomagnesemia E83.42 Hyperlipidemia LDL goal <70 E78.5 GERD (gastroesophageal reflux disease) K21.9 Depression F32.9 Insomnia G47.00 Right lower lobe pneumonia J18.9 Pneumonia type: due to unspecified organism (1) Right lower lobe pneumonia Pneumonia type: due to unspecified organism Qualified Code(s): J18.9 - Pneumonia, unspecified organism
--- NOTE | 2019-12-31 11:37 | Emergency Department Note ---
Entered by Sandy Mejía acting as a scribe for ED Provider Note Name: LAUREN BECKFORD Age: 84 Arrives Via: Ambulance Informant: Patient CC: Shortness of breath HPI: 84F arrives for evaluation of shortness of breath that started yesterday morning. She notes that her symptoms seemed intermittent yesterday, but worsened today. The patient complains of fever and loss of appetite. She confirms that she did received a flu shot this year. She denies urinary symptoms, loss of consciousness, leg swelling, and abdominal pain The patient has no history of asthma, COPD, or lung disease. The patient takes aspirin daily. She notes that she cannot take Acetaminophen. ROS: See above HPI for pertinent positives & negatives. A total of 10 systems reviewed and were otherwise negative. Past Medical History: PVD, Depression, GERD, HLP, CHF Past Surgical History: cholecystectomy Family History:family history of heart disease and hypertension Social History:See Below Home Medications:See Below Allergies:See Below Vitals:BP: 188/90 Pulse: 89 Resp: 24 Temp: 38.3 O2 Sat: 93 Physical Exam: GENERAL: Patient is ill appearing and in no moderate distress. Warm to touch. EYES: No scleral icterus, unremarkable pupils. ENT: Dry mucous membranes, no nasal congestion. NECK: No masses appreciated, nomeningismus, trachea is midline. RESPIRATORY: Dyspneic and tachypneic. Diffusely tight lung sounds with light expiatory wheezing. CARDIOVASCULAR: Regular rate and rhythm.No murmurs, rubs, gallops appreciated. GASTROINTESTINAL: Abdomen soft, non-tender, no peritonitis.Bowel sounds positi ve.No masses appreciated. BACK: No midline tenderness, no CVA tenderness EXTREMITIES: Normal motion all extremities, no cyanosis, no edema. NEUROLOGIC: Alert and oriented, no acute motor or sensory deficits, no focal weakness, cranial nerves grossly intact. SKIN: No rash, no jaundice, no diaphoresis. ED Course: Prior Medical Record, Triage/Nursing Notes, Medications, Allergies reviewed by Me Vital Signs: reviewed and remarkable for HTN Labs:Reviewed and remarkable for elevated Trop Interventions: saline lock, nss bolus, cefepime 2gm IV, Azithro 500mg IV, asa 324mg PO Imaging:X ray results are stated below per my interpretation: Chest: 1 view: RLL infiltrate EKG:Per My Interpretation: Indication SHOB: NSR 88 bpm, qtc 450. No Ectopy. New lateral T wave inversions compared to EKG 06/10/19 Employee Adviser: An Order was placed for continuous cardiac monitoring. The monitor shows a rate of 80 with a normal sinus rhythm. Reassessments/Times: 0240: Past medical records reviewed. The patient was evaluated in room B12B. A complete history and physical exam was performed. 0328: The patient is on nasal cannula oxygen, and states she is feeling much improved. The patient is in no current distress. 0345: The patients labs returned and troponin was abnormal. Dr. Portillo has been paged. I updated the patient and discussed the possibility of further treatment in the hospital. She is agreeable to this and understands the plan. 0349: I spoke to Dr. Portillo, [facility] hospitalist, who agreed to take over care of the patient. The patient is agreeable and will be evaluated for further treatment. Blood pressure:Elevated -Further management by hospitalist. Disposition:Admit Prescriptions:None. Differentials:Differential diagnosis includes: infections, reactive airway disease, pneumonia, pneumothorax, COPD, CHF, cardiac ischemia, pulmonary embolism, musculoskeletal, gastrointestinal, as well as others were entertained. Medical Decision Makin yr old female with history of known PVD arrives with acute respiratory distress and while not significantly hypoxic she is very dyspneic which is vastly improved just with putting her on NC O2. She was given neb with some improvement in breathing. Flu negative. No COVID risk factors. She has RLL infiltrate on CXR and given cefepime/azithro for coverage. She was given light hydration without overloading known CHF. Unlikely PE given other findings. Trop is moderately elevated and given new lateral T wave inversions suspect secondary NSTEMI to respiratory issue. Given ASA 324mg PO and defer heparin to hospitalist orders. She is stable, breathing comfortably on NC O2 and she/family comfortable with plan. Impression: Right lower lobe pneumonia Elevated troponin EKG changes CHF Hypomagnesemia The scribe's documentation has been prepared under my direction and personally reviewed by me in its entirety. I confirm that the note above accurately reflects all work, treatment, procedures, and medical decision making performed by me. Ernesto Villanueva MD Impression & Plan Right lower lobe pneumonia, CHF (congestive heart failure), Elevated troponin, Acute electrocardiogram changes, Hypomagnesemia Past Med/Surg History Medical History (Updated 12/30/19 @ 12:02 by Yakov Pedersen MD) Abdominal hernia (Chronic) Depression GERD (gastroesophageal reflux disease) Hyperlipidemia LDL goal <70 Insomnia Lumbar stenosis with neurogenic claudication (Acute) Right leg pain (Acute) Thoracic compression fracture (Acute) Surgical History Hx of cholecystectomy (Resolved) Family History Other FHx: heart disease FHx: hypertension Social History Preferred Language: Albanian Communication Ability: Effective Tool And [employer] Supervisor Required: No Beliefs That Will Affect Care: None Current Living Situation: Alone Other Information That Helps Us Care for You: No Feels Safe at Home: Yes Safety Concerns: Feels Safe At This Time Smoking Status: Never smoker Do You Dip or Chew Tobacco: No ; Second Hand Exposure: No ; Hx Alcohol Use: No Hx Substance Use: No Results & Data Vital Signs Vital Signs - 24 hr 12/30/19 02:33 12/30/19 03:12 Temperature 38.3 C H Temperature Source Oral Pulse Rate 89 Respiratory Rate 24 Respiratory Effort / Characteristics Labored Blood Pressure 188/90 H Blood Pressure Mean 122 Pulse Oximetry 93 92 Oxygen Delivery Method Room Air Room Air Sepsis Action Taken by Nursing No Action Required Oxygen Flow Rate - Titration 2 Pulse Oximetry Post Tiitration 97 Home Medications Current Medication List: was personally reviewed by me Laboratory Data Attestation: I reviewed the patient's lab results. Result diagrams: 12/31/19 06:03 12/31/19 06:03 Lab Results 12/30/19 12/30/19 12/30/19 Range/Units 03:02 03:02 03:15 WBC 11.77 H (4.8-10.8) K/uL RBC 3.27 L (4.2-5.4) M/uL Hgb 9.5 L (12.0-16.0) g/dL Hct 28.3 L (37-47) % MCV 86.5 (80-100) fL MCH 29.1 (25-34) pg MCHC 33.6 (32-36) g/dL RDW Std Deviation 41.6 (36.4-46.3) fL RDW Coeff of Shara 13.1 (11.5-14.5) % Plt Count 267 (130-400) K/uL MPV 9.9 (7.4-10.4) fL Immature Gran % (Auto) 0.2 % Neut % (Auto) 86.2 % Lymph % (Auto) 6.6 % [place] % (Auto) 5.5 % Eos % (Auto) 1.4 % Baso % (Auto) 0.1 % Immature Gran # (Auto) 0.02 (0.00-0.02) K/uL Neut # (Auto) 10.15 H (1.4-6.5) K/uL Lymph # (Auto) 0.78 L (1.2-3.4) K/uL [place] # (Auto) 0.65 H (0.11-0.59) K/uL Eos # (Auto) 0.16 (0-0.5) K/uL Baso # (Auto) 0.01 (0-0.2) K/uL Sodium 136 (136-145) mmol/L Potassium 3.9 (3.5-5.1) mmol/L Chloride 105 (98-107) mmol/L Carbon Dioxide 26 (21-32) mmol/L Anion Gap 5.0 (3-11) BUN 11 (7-18) mg/dl Creatinine 0.76 (0.6-1.2) mg/dl Est Cr Clr Drug Dosing 43.3 ml/min Est GFR ( Amer) 82.3 Est GFR (Non-Af Amer) 71.0 BUN/Creatinine Ratio 14.6 (10-20) Glucose 123 H (70-99) mg/dl Lactate 0.8 (0.4-2.0) mmol/L Calcium 8.5 (8.5-10.1) mg/dl Magnesium 1.3 L (1.8-2.4) mg/dl Total Bilirubin 0.7 (0.2-1) mg/dl Direct Bilirubin 0.1 (0-0.2) mg/dl AST 14 L (15-37) U/L ALT 19 (12-78) U/L Alkaline Phosphatase 52 (45-117) U/L Troponin I 0.716 H* (0-0.045) ng/ml NT-Pro-B Natriuret Pep 6138 H (0-1800) pg/ml Total Protein 6.8 (6.4-8.2) gm/dl Albumin 2.7 L (3.4-5.0) gm/dl Influenza Type A (PCR) (Neg) Influenza Type B (PCR) (Neg) 12/30/19 Range/Units 03:15 WBC (4.8-10.8) K/uL RBC (4.2-5.4) M/uL Hgb (12.0-16.0) g/dL Hct (37-47) % MCV (80-100) fL MCH (25-34) pg MCHC (32-36) g/dL RDW Std Deviation (36.4-46.3) fL RDW Coeff of Shara (11.5-14.5) % Plt Count (130-400) K/uL MPV (7.4-10.4) fL Immature Gran % (Auto) % Neut % (Auto) % Lymph % (Auto) % [place] % (Auto) % Eos % (Auto) % Baso % (Auto) % Immature Gran # (Auto) (0.00-0.02) K/uL Neut # (Auto) (1.4-6.5) K/uL Lymph # (Auto) (1.2-3.4) K/uL [place] # (Auto) (0.11-0.59) K/uL Eos # (Auto) (0-0.5) K/uL Baso # (Auto) (0-0.2) K/uL Sodium (136-145) mmol/L Potassium (3.5-5.1) mmol/L Chloride (98-107) mmol/L Carbon Dioxide (21-32) mmol/L Anion Gap (3-11) BUN (7-18) mg/dl Creatinine (0.6-1.2) mg/dl Est Cr Clr Drug Dosing ml/min Est GFR ( Amer) Est GFR (Non-Af Amer) BUN/Creatinine Ratio (10-20) Glucose (70-99) mg/dl Lactate (0.4-2.0) mmol/L Calcium (8.5-10.1) mg/dl Magnesium (1.8-2.4) mg/dl Total Bilirubin (0.2-1) mg/dl Direct Bilirubin (0-0.2) mg/dl AST (15-37) U/L ALT (12-78) U/L Alkaline Phosphatase (45-117) U/L Troponin I (0-0.045) ng/ml NT-Pro-B Natriuret Pep (0-1800) pg/ml Total Protein (6.4-8.2) gm/dl Albumin (3.4-5.0) gm/dl Influenza Type A (PCR) Neg for Influ A (Neg) Influenza Type B (PCR) Neg for Influ B (Neg) Administered Medications Aspirin (Ecotrin Ectab) 81 mg PO DAILY ERENDIRA Stop: 01/30/20 08:59 Last Admin: 12/31/19 08:39 Dose: 81 mg Documented by: [id number] Atorvastatin Calcium (Lipitor) 80 mg PO DAILY ERENDIRA Stop: 01/29/20 08:59 Last Admin: 12/31/19 08:39 Dose: 80 mg Documented by: [id number] Admin: 12/30/19 08:49 Dose: 80 mg Documented by: [id number] Cosigned by: [id number] Famotidine (Pepcid) 20 mg PO BID ERENDIRA Stop: 01/29/20 08:59 Last Admin: 12/31/19 08:39 Dose: 20 mg Documented by: [id number] Admin: 12/30/19 20:42 Dose: 20 mg Documented by: [id number] Admin: 12/30/19 08:50 Dose: 20 mg Documented by: [id number] Cosigned by: [id number] Losartan Potassium (Cozaar) 50 mg PO BID ERENDIRA Stop: 01/29/20 08:59 Last Admin: 12/31/19 08:40 Dose: 50 mg Documented by: [id number] Admin: 12/30/19 20:42 Dose: 50 mg Documented by: [id number] Admin: 12/30/19 08:49 Dose: 50 mg Documented by: [id number] Cosigned by: [id number] Metoprolol Succinate (Toprol Xl) 50 mg PO BID ERENDIRA Stop: 01/29/20 08:59 Last Admin: 12/31/19 08:39 Dose: 50 mg Documented by: [id number] Admin: 12/30/19 20:42 Dose: 50 mg Documented by: [id number] Admin: 12/30/19 10:03 Dose: 50 mg Documented by: [id number] Cosigned by: [id number] Multivitamins/Minerals (Caltrate Plus) 2 tab PO DAILY ERENDIRA Stop: 01/29/20 08:59 Last Admin: 12/31/19 08:39 Dose: 2 tab Documented by: [id number] Admin: 12/30/19 08:48 Dose: 2 tab Documented by: [id number] Cosigned by: [id number] Paroxetine HCl (Paroxetine Hcl) 10 mg PO DAILY ERENDIRA Stop: 01/29/20 08:59 Last Admin: 12/31/19 08:39 Dose: 10 mg Documented by: [id number] Admin: 12/30/19 08:50 Dose: 10 mg Documented by: [id number] Cosigned by: [id number] Discontinued Medications Aspirin (Aspirin Chew) 324 mg PO NOW STA Stop: 12/30/19 03:47 Last Admin: 12/30/19 04:00 Dose: 324 mg Documented by: [id number] Furosemide (Lasix) 40 mg PO NOW ONE Stop: 12/31/19 08:14 Last Admin: 12/31/19 08:38 Dose: 40 mg Documented by: [id number] Heparin Sodium/Dextrose () 1 ea IV ONE ONE; Protocol Stop: 12/30/19 05:47 Last Admin: 12/30/19 08:04 Dose: 1 ea Documented by: [id number] Heparin Sodium/Dextrose () 1 ea IV Q15M ERENDIRA; Protocol Stop: 01/29/20 06:29 Last Admin: 12/30/19 08:05 Dose: Not Given Documented by: [id number] Admin: 12/30/19 08:04 Dose: Not Given Documented by: [id number] Admin: 12/30/19 08:04 Dose: Not Given Documented by: [id number] Admin: 12/30/19 08:04 Dose: Not Given Documented by: [id number] Admin: 12/30/19 08:04 Dose: Not Given Documented by: [id number] Admin: 12/30/19 08:04 Dose: Not Given Documented by: [id number] Sodium Chloride (Nss) 500 mls @ 999 mls/hr IV .Q31M ONE Stop: 12/30/19 03:14 Last Infusion: 12/30/19 04:00 Dose: 0 mls/hr Documented by: [id number] Admin: 12/30/19 03:12 Dose: 999 mls/hr Documented by: [id number] Cefepime HCl (Maxipime) 2,000 mg in 20 mls @ 5 mls/min IV NOW STA Stop: 12/30/19 03:47 Last Admin: 12/30/19 04:00 Dose: 5 mls/min Documented by: [id number] Azithromycin 500 mg/ Dextrose 255 mls @ 125 mls/hr IV ONE ONE Stop: 12/30/19 05:46 Last Infusion: 12/30/19 06:03 Dose: 0 mls/hr Documented by: [id number] Admin: 12/30/19 04:00 Dose: 125 mls/hr Documented by: [id number] Magnesium Sulfate/Dextrose (Magnesium Sulfate / D5w) 1 gm in 100 mls @ 100 mls/hr IV ONE ONE Stop: 12/30/19 04:45 Last Infusion: 12/30/19 04:59 Dose: 0 mls/hr Documented by: [id number] Admin: 12/30/19 03:59 Dose: 100 mls/hr Documented by: [id number] Cefepime HCl 2,000 mg/ Syringe 20 mls @ 5.5 mls/min IV Q12H [facility]; Protocol Stop: 01/06/20 15:59 Last Admin: 12/31/19 03:09 Dose: 5.5 mls/min Documented by: [id number] Admin: 12/30/19 16:57 Dose: 5.5 mls/min Documented by: [id number] Azithromycin 500 mg/ Dextrose 255 mls @ 125 mls/hr IV Q24H [facility] Stop: 01/05/20 08:03 Last Infusion: 12/31/19 08:38 Dose: 0 mls/hr Documented by: [id number] Admin: 12/31/19 05:53 Dose: 125 mls/hr Documented by: [id number] Heparin Sodium/Dextrose (Heparin Sodium/Dextrose) 25,000 units in 500 mls @ 13 mls/hr IV .Q24H ERENDIRA; Protocol Stop: 01/29/20 07:59 Last Titration: 12/30/19 13:54 Dose: 0 units/hr, 0 mls/hr Documented by: [id number] Cosigned by: [id number] Admin: 12/30/19 08:03 Dose: 650 units/hr, 13 mls/hr Documented by: [id number] Cosigned by: [id number] Magnesium Sulfate/Dextrose (Magnesium Sulfate / D5w) 1 gm in 100 mls @ 100 mls/hr IV Q1H ERENDIRA Stop: 12/30/19 09:14 Last Infusion: 12/30/19 09:43 Dose: 0 mls/hr Documented by: [id number] Admin: 12/30/19 08:40 Dose: 100 mls/hr Documented by: [id number] Infusion: 12/30/19 08:37 Dose: 0 mls/hr Documented by: [id number] Admin: 12/30/19 07:35 Dose: 100 mls/hr Documented by: [id number] Furosemide 40 mg/ Syringe 4 mls @ 4 mls/min IV ONE ONE Stop: 12/30/19 08:16 Last Admin: 12/30/19 08:48 Dose: 4 mls/min Documented by: [id number] Cosigned by: [id number] Metoprolol Succinate (Toprol Xl) 25 mg PO NOW STA Stop: 12/30/19 05:47 Last Admin: 12/30/19 07:53 Dose: 25 mg Documented by: [id number] Blood Pressure Blood Pressure Findings: Elevated blood pressure Blood Pressure Disposition: further management by hospitalist Discharge Plan Visit Data *Final* Discharge Date/Time: 12/30/19 04:59 Chief Complaint: Shortness of Breath/Dyspnea Stated Complaint: SHORT OF BREATH ED Provider: Ernesto Villanueva Discharge Problem: Right lower lobe pneumonia, CHF (congestive heart failure), Elevated troponin, Acute electrocardiogram changes, Hypomagnesemia Patient Disposition: Admitted As Inpatient Discharge Instructions Interventions: ED Discharge Assessment Last Done: 12/30/19 04:59 Discharge Problem: Right lower lobe pneumonia Qualifiers: Pneumonia type: due to unspecified organism Qualified Code(s): J18.9 - Pneumonia, unspecified organism CHF (congestive heart failure) Qualifiers: Heart failure type: unspecified Heart failure chronicity: unspecified Qualified Code(s): I50.9 - Heart failure, unspecified The scribe's documentation has been prepared under my direction and personally reviewed by me in its entirety. I confirm that the note above accurately reflects all work, treatment, procedures, and medical decision making performed by me.
--- NOTE | 2019-12-31 11:58 | Cardiology Progress Note ---
Date of Service December 31, 2019 Assessment & Plan (1) Elevated troponin: Likely a supply demand mismatchas she was significantly hypertensive at time of presentation. Echocardiogram notes normal left ventricular systolic function and evidence of mild LVH. (2) Abnormal ECG: Secondary to left ventricular hypertrophy with repolarization abnormality.. (3) Hyperlipidemia LDL goal <70: Continue atorvastatin. (4) Vascular disease: History of both cerebrovascular and peripheral vascular disease. Continue medical management. Admission and Anticipated Discharge Date Admission Date: December 30, 2019 Subjective The patient is resting comfortably in bed without complaints of chest pain or dyspnea. Continues to note a nonproductive cough. Physical Exam Physical Exam: In general this is a well-developed well-nourished white female in no acute distress. HEENT exam is negative. Neck is supple with full carotid upstrokes. There are no obvious carotid bruits. Jugular venous pressure is flat at 90. There is no thyromegaly. Cardiovascular exam reveals a regular rhythm with a normal S1 and S2. Heart sounds are distant. No obvious murmurs. Lungs note crackles at the bases. Abdomen is soft and nontender without bruits. Extremities reveal intact radial artery pulses bilaterally. There is no peripheral edema. Results & Data ([facility] [place]) Vital Signs (Past 12 Hours) Vital Signs Temp Pulse Pulse Resp BP BP Pulse Ox 12/31/19 11:32 36.6 C 78 18 167/75 H 92 12/31/19 08:07 75 12/31/19 07:54 36.7 C 75 20 111/57 L 90 12/31/19 04:21 36.7 C 95 H 20 187/78 H 95 12/31/19 01:44 77 Diagnostic Findings cafeteria monitor notes normal sinus rhythm. PG Care Time/CCT Total # of Minutes Spent Total Time Spent with Patient: Total time spent is greater than 50% in coordination of care (as documented) at patient's floor/unit and/or counseling patient: Coding Level of Care Code 90963 Subseq Hosp Care Lvl 3 Diagnoses Elevated troponin R79.89 Abnormal ECG R94.31 Hyperlipidemia LDL goal <70 E78.5 Vascular disease I99.9
--- NOTE | 2019-12-31 15:59 | Electrocardiogram Report ---
Test Reason : Blood Pressure : / mmHG Vent. Rate : 074 BPM Atrial Rate : 074 BPM P-R Int : 154 ms QRS Dur : 080 ms QT Int : 400 ms P-R-T Axes : 060 030 -12 degrees QTc Int : 444 ms Normal sinus rhythm with sinus arrhythmia Abnormal ECG When compared with ECG of 30-DEC-2019 02:40, Nonspecific T wave abnormality has replaced inverted T waves in Lateral leads Confirmed by Yakov Pedersen ([id number]) on 12/31/2019 3:58:48 PM Referred By: REFERRED SELF Confirmed By:Yakov Pedersen
[2020-01-01] MEDS: LOSARTAN POTASSIUM 50 MG TAB PO SCH (07:40)
[2020-01-01] MEDS: FAMOTIDINE 20 MG TAB PO SCH (07:40)
[2020-01-01] MEDS: METOPROLOL SUCC 50MG EXT REL TAB PO SCH (07:40)
[2020-01-01] MEDS: ASPIRIN 81 MG ECTAB PO SCH (07:41)
[2020-01-01] MEDS: CALCIUM 600MG + VIT D 400 IU TAB PO SCH (07:41)
[2020-01-01] MEDS: PARoxetine HCL 10 MG TAB PO SCH (07:41)
[2020-01-01] MEDS: ATORVASTATIN 40 MG TAB PO SCH (07:41)
[2020-01-01 08:23] LABS: Basophils # (auto) 0.04 K/uL (0-0.2); Basophils % (auto) 0.4 %; Eosinophils # (auto) 0.19 K/uL (0-0.5); Eosinophils % (auto) 1.8 %; Hemoglobin 10.7 g/dL (12.0-16.0); Immature Granulocytes # (auto) 0.02 K/uL (0.00-0.02); Immature Granulocytes % (auto) 0.2 %; Lymphocytes # (auto) 1.28 K/uL (1.2-3.4); Lymphocytes % (auto) 11.9 %; Mean Corpuscular Hemoglobin 29.5 pg (25-34); Mean Corpuscular Hgb Conc 34.5 g/dL (32-36); Mean Corpuscular Volume 85.4 fL (80-100); Mean Platelet Volume 10.2 fL (7.4-10.4); Monocytes # (auto) 0.64 K/uL (0.11-0.59); Monocytes % (auto) 5.9 %; Neutrophils # (auto) 8.59 K/uL (1.4-6.5); Neutrophils % (auto) 79.8 %; Platelet Count 329 K/uL (130-400); RDW Coefficient of Variation 12.9 % (11.5-14.5); RDW Standard Deviation 40.6 fL (36.4-46.3); Red Blood Count 3.63 M/uL (4.2-5.4); White Blood Count 10.76 K/uL (4.8-10.8)
[2020-01-01 08:57] LABS: Albumin Level 2.9 gm/dl (3.4-5.0); BUN Creatinine Ratio 16.7 (10-20); Calcium 9.9 mg/dl (8.5-10.1); Creatinine Clr Calc Pharmacy 37.7 ml/min; Est GFR (African American) 72.9; Est GFR (Non-African American) 62.9; Potassium 3.7 mmol/L (3.5-5.1)
[2020-01-01 08:58] LABS: Phosphorus 3.1 mg/dl (2.5-4.9)
[2020-01-01] MEDS ORDERED: cloNIDine HCL 0.1 MG TAB PO ONE (11:07)
--- NOTE | 2020-01-01 16:48 | Discharge Summary ---
Date of Service January 01, 2020 Admission HPI Per Admitting Provider The patient is an 84-year-old female with a past medical history including hyperlipidemia, CHF, hypomagnesemia, lumbar stenosis with neurogenic claudication, thoracic compression fracture and insomnia. She presents to the emergency department the above symptoms. In the ED she had a temperature of 100.9, with the patient was unaware of. She reports that she has had difficulty adjusting to some recent blood pressure changes, and traces her recent issues with blood pressure volatility back to timing around the time of Carotid Doppler studies that were performed. Principal Diagnosis Acute heart failure with preserved ejection fraction Discharge Exam Constitutional WD/WN, vitals as above Eyes PERRL, conjunctivae normal, anicteric sclerae ENMT external ear and nose normal, oropharynx normal Neck trachea midline, no thyromegaly Respiratory normal respiratory effort, lungs clear to auscultation Cardiovascular Rate/Rhythm: regular rate and regular rhythm Heart Sounds: normal S1 and normal S2; no murmur Extremities: normal capillary refill; no edema Gastrointestinal (Abdomen) normal bowel sounds, soft, nontender, no hepatosplenomegaly Musculoskeletal no cyanosis or clubbing, extremities motor strength 5/5 Skin no rashes, warm and dry Neurologic patellar DTR's 2+ bilat, sensation intact and PERRL, EOMI, accommodation nl, no face palsy, no dysarthria Psychiatric A+Ox3, euthymic affect Lymphatic no cervical or axillary lymphadenopathy Discharge Data Allergies Allergy/AdvReac Type Severity Reaction Status Date / Time adhesive Allergy Unknown RED Verified 12/30/19 02:29 atenolol Allergy Unknown Unknown Verified 12/30/19 02:29 codeine Allergy Unknown Unknown Verified 12/30/19 02:29 indapamide Allergy Unknown Unknown Verified 12/30/19 02:29 Iodinated Contrast Media Allergy Unknown ` Verified 12/30/19 02:29 lisinopril Allergy Unknown Unknown Verified 12/30/19 02:29 nickel Allergy Unknown ALLERGY TO Verified 12/30/19 02:29 "METAL" nifedipine Allergy Unknown Unknown Verified 12/30/19 02:29 verapamil Allergy Unknown Unknown Verified 12/30/19 02:29 Latex, Natural Rubber Allergy Rash Verified 12/30/19 07:32 hydromorphone AdvReac Severe HALLUCINATI Verified 12/30/19 02:29 ON morphine AdvReac Unknown NAUSEA Verified 12/30/19 02:29 Consultations 12/30/19 03:46 ED Decision to Admit Stat 12/30/19 05:46 Consult Cardiology Routine Consult Case Management - Discharge Planning Routine Hospital Course (1) Acute on chronic heart failure with normal ejection fraction: diuresed over 2 liters after Lasix 40mg IV given on 12/30 BNP trending down treated with Lasix 40mg PO BID on 12/31, continued to have increased urine output, edema resolved fluid restriction, daily weight, low sodium diet d/w cardiology, agree with plan d/c home on Lasix 20mg daily with potassium 20mEq check daily weights at home, notify Dr. Lauren Hernandez if weight trending upward by 2-3 lbs per patient, her baseline weight is 147 lbs which she weighed 2 weeks ago, she presented to the hospital with a weight gain of 5-6 lbs responded well to Lasix she is still not sold on the idea that she was in heart failure referred to heart failure clinic for at least one follow up for teaching (2) Elevated troponin: not significant according to cardiology, this is just elevated troponin, NOT demand ischemic, NOT NSTEMI continue metoprolol succinate Continue losartan 50 mg p.o. twice daily. Continue aspirin 81 mg daily. cardiology consult appreciated heparin drip stopped on 12/29 (3) Hypomagnesemia: Magnesium 1.3 upon admission. replaced, resolved (4) Hyperlipidemia LDL goal <70: Continue atorvastatin 80 mg daily (5) GERD (gastroesophageal reflux disease): continue omeprazole (6) Depression: Continue Paxil 10 mg p.o. daily (7) Insomnia: Continue lorazepam 0.5 mg p.o. at bedtime as needed (8) Right lower lobe pneumonia: initially on antibiotics due to temperature of 100.9 CXR more consistent with pulmonary edema procalcitonin normal, WBC normal, no further fevers, could have been outlier will stop antibiotics Pneumonia ruled out Total Time Total Time Spent Total Time Spent (In Minutes): 35 minutes Total Time Includes: Examination of the Patient, Discharge Planning, Medication Reconciliation and Communication With Other Providers (Dr. Pedersen) Discharge Plan Discharge Items Patient Disposition: Home - Home Health Services Reason For Visit: Acute on chronic heart failure Discharge Diagnosis: Acute on chronic heart failure with preserved ejection fraction Hypertension Condition on Discharge: Good Goals: improve volume control by using Lasix daily follow up with Dr. Lauren Hernandez Activity: Resume your previous activity Driving/Machine Use: Resume 1 day after discharge Weightbearing: Full weightbearing Non-emergency contact: Primary Care Provider Call non-emergency contact if: you have any medication questions and your symptoms worsen Follow-up/Referrals: Bhavesh Jack MD [Primary Care Provider] - 01/05/20 2:30 pm (One week) Yuko Tavera PA-C [Physician Manager Of Regulatory Affairs] - 01/07/20 10:30 am (Congestive Heart Failure Program Appointment Information Early follow up is essential to managing your heart failure. An appointment has been scheduled for you with the [facility] Heart Failure Program within 7 days of discharge. Anticipate this visit to be 30-60 minutes long. Please expect a weatherization and housing inspector phone call from one of our nurses approximately 48 hours from discharge. They will also be placing an order for lab work to be completed 1-2 days prior to your heart failure follow up appointment. Please be sure to have this done so we can go over the results when you come in. Office Location The cardiology office building is located in front of the hospital at [address] [facility]. Bring the following with you to your follow-up doctor appointments: Please bring your daily weight log any discharge paperwork all of your medication bottles with you to this visit. ) Diet: Heart Healthy Fluids: 2000ml (8 cups) Addtl Attending Provider Instructions: Medications: - METOPROLOL: 50mg twice a day, this replaces Atenolol, next dose this evening - LASIX: 20mg daily for volume control - POTASSIUM: 20mEq daily to help offset any losses from Lasix Acute on chronic heart failure with preserved ejection fraction diuresed well with Lasix IV, weight down 4 lbs, negative 2 liters of fluid you likely need a daily Lasix dose, will make it low at 20mg in the morning will be on potassium with the Lasix to keep potassium levels normal you will need to follow a fluid restriction of 2 liters total for the day follow a low sodium diet, less than 2 grams a day total continue to weigh yourself EVERY morning if your weight goes up by 2-3 lbs you need to call Dr. Lauren Hernandez do not wait because if the weight goes up by 4-5 lbs like it did, you will likely return to the hospital will refer you to Yuko RING with the heart failure clinic for follow up as well Call 911 and go to the Emergency Room if: * You have tightness or pain in your chest that does not go away with rest or Nitroglycerin * You are very short of breath even with rest Call your doctor if any of the following symptoms or problems start or get worse: * Shortness of breath or difficulty breathing * Wake up at night short of breath * Chest pain * Cough * Swelling of your hands, fee, or legs * More fatigued or tired with your normal activity * Palpitations - sudden fast heart beats WEIGHT * Weigh yourself every morning after using the bathroom. * Use the same scale. * Wear the same amount of clothing. * Write your weight down on your chart. * Call your doctor if you gain more than 2-3 pounds in 1-2 days. MEDICATIONS * Use this discharge instruction sheet for instructions. * Take your medications at the time your doctor ordered. * Do not skip a dose of your medicines. * If you miss a dose of medicine, take as soon as possible, but DO NOT DOUBLE A DOSE. * Read your medicine information when you get home. * Know all of the side effects of your medicine. * Call your doctor's office if you have any side effects. * Be sure all of your doctors know what medicine and herbs you take (including cold, flu, and herbal medicine). * Pain Medicine: If you do not get relief from your pain, please call your doctor for help. Take the following with you to your follow-up doctor appointments: * Weight Chart * Medication List * List of questions Do not drink excessive alcohol, beer or wine. Pending Studies at Discharge: No Stand-Alone Forms: My [facility] [employer], Smoking Cessation Medications and DC Order Prescriptions: New furosemide 20 mg tablet 20 mg PO DAILY Qty: 30 RF: 1 potassium chloride 20 mEq tablet extended release 20 meq PO DAILY Qty: 30 RF: 1 metoprolol tartrate 50 mg tablet 50 mg PO BID Qty: 60 RF: 0 clonidine HCl 0.1 mg tablet 0.1 mg PO BID Qty: 60 RF: 0 Continued losartan [Cozaar] 50 mg tablet 50 mg PO BID RF: 0 paroxetine HCl [Paxil] 10 mg tablet 10 mg PO DAILY RF: 0 aspirin [Aspir-Low] 81 mg Tablet,Delayed Release (Dr/Ec) 81 mg PO DAILY RF: 0 lorazepam [Ativan] 0.5 mg Tablet 0.5 mg PO HS PRN (Reason: Anxiety) RF: 0 ibuprofen 200 mg Tablet 200 mg PO DAILY PRN (Reason: Pain) RF: 0 omeprazole 20 mg capsule,delayed release(DR/EC) 20 mg PO DAILY RF: 0 Caltrate 600 plus D 600 mg (1,500 mg)-800 unit Tablet,Chewable 2 tab PO DAILY RF: 0 atorvastatin 80 mg Tablet 80 mg PO DAILY RF: 0 Discontinued labetalol 100 mg Tablet 100 mg PO BID RF: 0 Discharge Orders: Discharge Order (Routine); Ordered 01/01/20 Ordered By: Brandon May/Other Patient Handouts: Pneumonia Admission Data Admit Date/Time: 12/30/19 04:41 Attending Provider: Brandon Velazco Admit Provider: Ernesto Portillo Primary Care Provider: Bhavesh Jack Other Providers: Ernesto Portillo ; Yakov Pedersen ; [place] Other Interventions: Discharge Summary Assessment (RN) Last Done: 01/01/20 11:16 DC Date/Time DO NOT enter until pt leaves facility: 01/01/20 13:23 Coding Level of Care Code D/C Day Management >30 mins Diagnoses Acute on chronic heart failure with normal ejection fraction I50.33 Elevated troponin R79.89 Hypomagnesemia E83.42 Hyperlipidemia LDL goal <70 E78.5 GERD (gastroesophageal reflux disease) K21.9 Depression F32.9 Insomnia G47.00 Right lower lobe pneumonia J18.9 Pneumonia type: due to unspecified organism
--- NOTE | 2020-01-01 18:04 | Electrocardiogram Report ---
Test Reason : Blood Pressure : / mmHG Vent. Rate : 077 BPM Atrial Rate : 077 BPM P-R Int : 154 ms QRS Dur : 086 ms QT Int : 408 ms P-R-T Axes : 060 024 -16 degrees QTc Int : 461 ms Sinus rhythm with Premature atrial complexes Minimal voltage criteria for LVH, may be normal variant Abnormal ECG When compared with ECG of 31-DEC-2019 06:32, Premature atrial complexes are now Present Inverted T waves have replaced nonspecific T wave abnormality in Anterolateral leads Confirmed by Nomi Hogan ([id number]) on 01/01/2020 6:04:14 PM Referred By: REFERRED SELF Confirmed By:Nomi Hogan
--- NOTE | 2020-01-06 14:27 | Coding Query ---
CONGESTIVE HEART FAILURE To Promote full compliance with coding requirements relating to patient care, physician participation is requested in all cases of certified procedural coder uncertainty. Please assist us with the following questions. A diagnosis of Congestive Heart Failure is documented in the patient's medical record. To accurately code this diagnosis and to compare patient severity, we ask that you specify the type of heart failure by placing an X within the parenthesis (x). Thanks for your help! RENY Fam [facility] SYSTOLIC HEART FAILURE ( ) Acute ( ) Chronic ( ) Acute on Chronic ( ) Rheumatic ( ) Unknown DIASTOLIC HEART FAILURE ( x) Acute ( ) Chronic ( ) Acute on Chronic ( ) Rheumatic ( ) Unknown COMBINED SYSTOLIC AND DIASTOLIC HEART FAILURE ( ) Acute ( ) Chronic ( ) Acute on Chronic ( ) Rheumatic ( ) Unknown Was the CHF Present On Admission? Please check the appropriate box: (x) Present on Admission ( ) Not Present On Admission ( ) Clinically undetermined Thank you Syed BRUNO
== END 2020-01-01 13:23 | disposition home health service (06) | DRG 291 ==
LOC: ED 02:25 → 2S 04:41 → SUATTDRO 04:41 → 2S 04:59 → 3W 12-31 10:25

== ENCOUNTER 2020-03-31 15:24 | Inpatient (IN) ==
[2020-03-31 16:47] LABS: Basophils # (auto) 0.01 K/uL (0-0.2); Basophils % (auto) 0.1 %; Eosinophils # (auto) 0.05 K/uL (0-0.5); Eosinophils % (auto) 0.4 %; Hematocrit (blood only) 35.6 % (37-47); Hemoglobin 12.1 g/dL (12.0-16.0); Immature Granulocytes # (auto) 0.04 K/uL (0.00-0.02); Immature Granulocytes % (auto) 0.3 %; Lymphocytes # (auto) 1.68 K/uL (1.2-3.4); Lymphocytes % (auto) 12.8 %; Mean Corpuscular Volume 85.4 fL (80-100); Mean Platelet Volume 9.8 fL (7.4-10.4); Monocytes # (auto) 0.87 K/uL (0.11-0.59); Monocytes % (auto) 6.6 %; Neutrophils # (auto) 10.49 K/uL (1.4-6.5); Neutrophils % (auto) 79.8 %; Platelet Count 285 K/uL (130-400); RDW Coefficient of Variation 13.6 % (11.5-14.5); RDW Standard Deviation 42.3 fL (36.4-46.3); Red Blood Count 4.17 M/uL (4.2-5.4); White Blood Count 13.14 K/uL (4.8-10.8)
[2020-03-31 17:02] LABS: Partial Thromboplastin Time 27.3 Seconds (21.0-31.0); Prothrombin Time 10.6 Seconds (9.0-12.0)
[2020-03-31 17:04] LABS: Albumin Level 3.4 gm/dl (3.4-5.0); BUN Creatinine Ratio 28.4 (10-20); Calcium 9.8 mg/dl (8.5-10.1); Creatinine Clr Calc Pharmacy 24.7 ml/min; Est GFR (African American) 47.9; Est GFR (Non-African American) 41.3; Magnesium 1.8 mg/dl (1.8-2.4); Potassium 3.9 mmol/L (3.5-5.1)
[2020-03-31 17:09] LABS: Albumin Globulin Ratio 0.8 (0.9-2); Bilirubin,Total 0.5 mg/dl (0.2-1); Total Protein 7.4 gm/dl (6.4-8.2); Troponin I 0.016 ng/ml (0-0.045)
--- NOTE | 2020-03-31 17:17 | CT Scan Report ---
CT head/brain wo con CT DOSE: 537.48 mGy.cm HISTORY: Sternal Stroke evaluation TECHNIQUE: Multiaxial CT images of the head were performed without the use of intravenous contrast. A dose lowering technique was utilized adhering to the principles of ALARA. Comparison: 07/22/2019 Findings: The paranasal sinuses and mastoid air cells are clear. The calvarium and skull base are int act. The ventricles and sulci are within normal limits. There is no mass, hematoma, midline shift, or acute infarct. Impression: No acute intracranial abnormality. Mild age-related atrophy and chronic small vessel change ACT 112: Negative or not required by law. The above report was generated using voice recognition software. It may contain grammatical, syntax or spelling errors. Electronically signed by: Dank Archer M.D. 03/31/2020 5:16 PM
--- NOTE | 2020-03-31 18:23 | History & Physical Report ---
Date of Service March 31, 2020 Assessment & Plan (1) Involuntary movements: With involuntary left-sided movements, left sided intermittent numbness, falls where legs give out, intermittent dysarthria and left-sided facial droop, and with right-sided occipital and right periorbital headaches. Neurological issues intermittently over the last 1 to 2 weeks, headaches have been longer for the last 2 to 3 months With a history of stable moderate carotid artery and vertebral artery disease not likely contributing to current symptoms. Differential includes partial seizures, cervical myelopathy, TIA/CVA Also with very labile and uncontrolled hypertension over the last several months -Admit to medical floor with telemetry for cardiac arrhythmia monitoring and further neurological work-up -Stroke order set -Neurological consultation requested -We will check MRI of the brain with and without contrast -Further imaging will defer to neurology for their input -Consider EEG-again, defer to neurology to order if felt necessary -Neurochecks -Continue aspirin, statin -PT/OT/speech therapy evaluations -Needs improved blood pressure control as below -No need for echocardiogram as just had one 1 month ago (2) Dysarthria: As above (3) Numbness and tingling: As above (4) Falls: As above No loss of consciousness or syncope, no lightheadedness although these falls do occur when she goes from a seated to a standing position Consider vertebrobasilar artery insufficiency given known left vertebral artery stenosis -Had recent echocardiogram in 12/2019 without significant valvular disease and with normal EF -Continue telemetry monitoring PT/OT consults (5) Headache: Right-sided occipital and right periorbital migraines -Checking MRI of the brain Has attempted injections with pain management-not successful thus far -Neurology consultation requested -Hemp cream that she has at home actually helps-advised her to bring this in from home -Tylenol and ibuprofen as needed (6) Labile hypertension: With hypertensive urgency here and known labile hypertension Follows with nephrology and PCP as an outpatient for this -Continue home medications for now to include metoprolol tartrate 75 mg p.o. every morning and 100 mg p.o. every afternoon, clonidine 0.2 mg p.o. twice daily with an extra 0.1 mg p.o. at 4 in the morning when she wakes up every day to go the bathroom, losartan 50 mg p.o. twice daily -Nephrology recently suggested changing to clonidine patch, adding on low-dose loop diuretic, and eventually adding on low-dose aldosterone antagonist -Will make her as needed Lasix daily dose of 20 mg once daily -Add on IV hydralazine as needed SBP greater than 180 -Continue to follow (7) Renal artery stenosis: Stable renal function -Follows with nephrology with medical management -Continue aspirin and statin (8) Carotid artery disease: Continue aspirin and statin Recent CT angiogram shows 67% stenosis of the R ICA, 50% stenosis of the LICA -Continue monitoring (9) Vertebral artery stenosis: Recent CT angiogram head and neck shows left vertebral origin artery 75% stenosis -Follows with vascular surgery No intervention indicated at this time (10) GERD (gastroesophageal reflux disease): -Continue daily PPI (11) Hyperlipidemia: Continue statin (12) Anxiety: Continue PRN lorazepam and Paxil 10 mg daily (13) DVT prophylaxis: Lovenox SQ, SCDs Disposition-admit to medical floor with telemetry, expected least a 2 midnight stay for further work-up PT/OT consults placed Comes from home, lives alone with daughter nearby History of Present Illness Chief Complaint: Left-sided numbness and left leg spasms with left facial droop Primary Care Provider: Bhavesh Jack MD This patient is an 84-year-old female with a history of HTN, right renal artery stenosis, carotid artery and vertebral artery stenosis,chronic diastolic CHF, hyperlipidemia, lumbar stenosis, GERD, insomnia, osteoporosis, and depression, who presents to the ER with approximately 1 to 2 weeks of intermittent involuntary movements of the left lower extremity and left upper extremity, sometimes associated with numbness and tingling. She is also had 2 falls in the last week where she stood up and just felt like her legs gave out but she did not pass out or feel lightheaded. She did not sustain any injuries during these falls. When her left upper and lower extremities are involuntarily moving, she is aware of it but has no control and it is a flexion and extension movement that is fairly significant. She is also been having headaches in the right occipital and right periorbital region almost daily for several months now. She has been receiving injections for this from pain management which are not improving the pain. Her daughter also reports she has noticed intermittent droop of the left side of the patient's face with some dysarthria in the last week or so as well as noticing that the patient leans to the left frequently even when she is in a seated position. She had a recent CT angiogram of the head and neck ordered by her vascular surgeon in [place] and had a telehealth visit with that surgeon today-it again showed stable stenoses of the bilateral carotid arteries and 75% stenosis of the left vertebral artery at the origin, but after describing her recent symptoms as above, her surgeon advised her to come to the hospital for further evaluation. In the ER, CT of the head was negative for acute disease. Her blood pressure has been significantly elevated and the patient reports this has also been ongoing for several months. She has been following with her PCP and with nephrology for this. She has not had any recent changes in her medications. She will be admitted for further evaluation for her neurological symptoms and for hypertensive urgency. Allergies Allergy/AdvReac Type Severity Reaction Status Date / Time adhesive Allergy Unknown RED Verified 03/31/20 18:05 atenolol Allergy Unknown Unknown Verified 03/31/20 18:05 codeine Allergy Unknown Unknown Verified 03/31/20 18:05 indapamide Allergy Unknown Unknown Verified 03/31/20 18:05 Iodinated Contrast Media Allergy Unknown ` Verified 03/31/20 18:05 lisinopril Allergy Unknown Unknown Verified 03/31/20 18:05 nickel Allergy Unknown ALLERGY TO Verified 03/31/20 18:05 "METAL" nifedipine Allergy Unknown Unknown Verified 03/31/20 18:05 verapamil Allergy Unknown Unknown Verified 03/31/20 18:05 Latex, Natural Rubber Allergy Rash Verified 03/31/20 18:05 hydromorphone AdvReac Severe HALLUCINATI Verified 03/25/20 08:58 ON morphine AdvReac Unknown NAUSEA Verified 03/25/20 08:58 Home Medications Home Medications Medication Instructions Recorded Confirmed Type Caltrate 600 plus D 2 tab PO DAILY 10/04/18 03/31/20 History aspirin [Aspir-Low] 81 mg PO DAILY 10/04/18 03/31/20 History lorazepam [Ativan] 0.5 mg PO HS PRN 10/04/18 03/31/20 History losartan [Cozaar] 50 mg PO BID 10/04/18 03/31/20 History omeprazole 20 mg PO DAILY 10/04/18 03/31/20 History paroxetine HCl [Paxil] 10 mg PO DAILY 10/04/18 03/31/20 History atorvastatin 80 mg PO DAILY 12/30/19 03/31/20 History furosemide 20 mg tablet 20 mg PO DAILY PRN tab 03/09/20 03/31/20 History metoprolol tartrate 50 mg tablet See Rx Instructions PO BID tab 03/09/20 03/31/20 History clonidine HCl 0.1 mg tablet 0.2 mg PO BID tab 03/25/20 03/31/20 History ibuprofen 200 mg tablet 400 mg PO DAILY PRN tab 03/25/20 03/31/20 History potassium chloride 20 mEq 20 meq PO DAILY PRN tab 03/25/20 03/31/20 History tablet,extended release cyanocobalamin (vitamin B-12) 0 mcg PO DAILY 03/31/20 03/31/20 History [Vitamin B-12] Past Med/Surg History Medical History Anxiety Anxiety disorder Carotid artery disease Depression (Resolved) GERD (gastroesophageal reflux disease) Headache Hyperlipidemia Hyperlipidemia LDL goal <70 (Resolved) Labile hypertension Lumbar stenosis with neurogenic claudication (Resolved) Renal artery stenosis Thoracic compression fracture (Resolved) Vertebral artery stenosis Surgical History History of bladder surgery History of hysterectomy History of lumbar spinal fusion History of tonsillectomy History of total bilateral knee replacement Hx of cholecystectomy (Resolved) Family History Other FHx: heart disease FHx: hypertension Social History Preferred Language: Nauruan Communication Ability: Effective 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 Beliefs That Will Affect Care: Quaker Current Living Situation: Alone Other Information That Helps Us Care for You: No Feels Safe at Home: Yes Safety Concerns: Feels Safe At This Time Smoking Status: Never smoker Do You Dip or Chew Tobacco: No ; Second Hand Exposure: No ; Tobacco Cessation Education Requested by Patient: No Hx Alcohol Use: No Hx Substance Use: No Review of Systems Review of Systems: All systems reviewed & are unremarkable except as noted in HPI & below Physical Exam Constitutional: WD/WN, vitals as above Eyes: PERRL, conjunctivae normal, anicteric sclerae EOM intact bilaterally; no nystagmus ENMT: external ear and nose normal, oropharynx normal Neck: trachea midline, no thyromegaly Respiratory: normal respiratory effort, lungs clear to auscultation Cardiovascular: RRR, no murmur, no edema Chest (Breasts): Chest: normal inspection of chest Gastrointestinal (Abdomen): normal bowel sounds, soft, nontender, no hepatosplenomegaly Musculoskeletal: Extremities: extremities normal to inspection; no cyanosis and no clubbing Skin: no rashes, warm and dry Neurologic: CN's II-XI intact bilaterally, moves all extremities and awake; no focal motor deficits and not confused Speech / Cognition: normal speech Motor/Sensory: no tremor, no fasciculations and no sensory deficit Psychiatric: A+Ox3, euthymic affect Lymphatic: no lymphedema Results & Data Results & Data ([facility]) Vital Signs (Past 12 Hours) Vital Signs Temp Pulse Resp BP Pulse Ox 03/31/20 17:20 61 19 95 03/31/20 17:18 61 18 03/31/20 17:00 58 L 16 117/53 L 03/31/20 16:50 59 L 21 03/31/20 16:40 59 L 20 03/31/20 16:30 57 L 18 143/56 H 03/31/20 16:27 61 20 117/59 L 03/31/20 16:25 59 L 23 03/31/20 15:36 36.6 C 63 16 167/65 H 96 Laboratory Results 03/31/20 03/31/20 03/31/20 Range/Units 16:32 16:29 16:29 WBC (4.8-10.8) K/uL RBC (4.2-5.4) M/uL Hgb (12.0-16.0) g/dL Hct (37-47) % MCV (80-100) fL MCH (25-34) pg MCHC (32-36) g/dL RDW Std Deviation (36.4-46.3) fL RDW Coeff of Shara (11.5-14.5) % Plt Count (130-400) K/uL MPV (7.4-10.4) fL Immature Gran % (Auto) % Neut % (Auto) % Lymph % (Auto) % Gonzales % (Auto) % Eos % (Auto) % Baso % (Auto) % Immature Gran # (Auto) (0.00-0.02) K/uL Neut # (Auto) (1.4-6.5) K/uL Lymph # (Auto) (1.2-3.4) K/uL Gonzales # (Auto) (0.11-0.59) K/uL Eos # (Auto) (0-0.5) K/uL Baso # (Auto) (0-0.2) K/uL PT 10.6 (9.0-12.0) Seconds INR 1.0 (0.9-1.1) APTT 27.3 (21.0-31.0) Seconds PTT Ratio 1.0 Sodium 135 L (136-145) mmol/L Potassium 3.9 (3.5-5.1) mmol/L Chloride 101 (98-107) mmol/L Carbon Dioxide 28 (21-32) mmol/L Anion Gap 5.0 (3-11) BUN 34 H (7-18) mg/dl Creatinine 1.19 (0.6-1.2) mg/dl Est Cr Clr Drug Dosing 24.7 ml/min Est GFR ( Amer) 47.9 Est GFR (Non-Af Amer) 41.3 BUN/Creatinine Ratio 28.4 H (10-20) Glucose 113 H (70-99) mg/dl Calcium 9.8 (8.5-10.1) mg/dl Magnesium 1.8 (1.8-2.4) mg/dl Total Bilirubin 0.5 (0.2-1) mg/dl AST 27 (15-37) U/L ALT 56 (12-78) U/L Alkaline Phosphatase 172 H (45-117) U/L Troponin I 0.016 (0-0.045) ng/ml Total Protein 7.4 (6.4-8.2) gm/dl Albumin 3.4 (3.4-5.0) gm/dl Globulin 4.0 (2.5-4.0) gm/dl Albumin/Globulin Ratio 0.8 L (0.9-2) Blood Type A Positive Antibody Screen NEGATIVE 03/31/20 Range/Units 16:29 WBC 13.14 H (4.8-10.8) K/uL RBC 4.17 L (4.2-5.4) M/uL Hgb 12.1 (12.0-16.0) g/dL Hct 35.6 L (37-47) % MCV 85.4 (80-100) fL MCH 29.0 (25-34) pg MCHC 34.0 (32-36) g/dL RDW Std Deviation 42.3 (36.4-46.3) fL RDW Coeff of Shara 13.6 (11.5-14.5) % Plt Count 285 (130-400) K/uL MPV 9.8 (7.4-10.4) fL Immature Gran % (Auto) 0.3 % Neut % (Auto) 79.8 % Lymph % (Auto) 12.8 % Gonzales % (Auto) 6.6 % Eos % (Auto) 0.4 % Baso % (Auto) 0.1 % Immature Gran # (Auto) 0.04 H (0.00-0.02) K/uL Neut # (Auto) 10.49 H (1.4-6.5) K/uL Lymph # (Auto) 1.68 (1.2-3.4) K/uL Gonzales # (Auto) 0.87 H (0.11-0.59) K/uL Eos # (Auto) 0.05 (0-0.5) K/uL Baso # (Auto) 0.01 (0-0.2) K/uL PT (9.0-12.0) Seconds INR (0.9-1.1) APTT (21.0-31.0) Seconds PTT Ratio Sodium (136-145) mmol/L Potassium (3.5-5.1) mmol/L Chloride (98-107) mmol/L Carbon Dioxide (21-32) mmol/L Anion Gap (3-11) BUN (7-18) mg/dl Creatinine (0.6-1.2) mg/dl Est Cr Clr Drug Dosing ml/min Est GFR ( Amer) Est GFR (Non-Af Amer) BUN/Creatinine Ratio (10-20) Glucose (70-99) mg/dl Calcium (8.5-10.1) mg/dl Magnesium (1.8-2.4) mg/dl Total Bilirubin (0.2-1) mg/dl AST (15-37) U/L ALT (12-78) U/L Alkaline Phosphatase (45-117) U/L Troponin I (0-0.045) ng/ml Total Protein (6.4-8.2) gm/dl Albumin (3.4-5.0) gm/dl Globulin (2.5-4.0) gm/dl Albumin/Globulin Ratio (0.9-2) Blood Type Antibody Screen Diagnostic Findings CT head/brain wo con CT DOSE: 537.48 mGy.cm HISTORY: Sternal Stroke evaluation TECHNIQUE: Multiaxial CT images of the head were performed without the use of intravenous contrast. A dose lowering technique was utilized adhering to the principles of ALARA. Comparison: 07/22/2019 Findings: The paranasal sinuses and mastoid air cells are clear. The calvarium and skull base are intact. The ventricles and sulci are within normal limits. There is no mass, hematoma, midline shift, or acute infarct. Impression: No acute intracranial abnormality. Mild age-related atrophy and chronic small vessel change Code Status & VTE Plan Code Status DNR/DNI as per my discussion with the patient with her daughter present at the bedside VTE Prophylaxis Plan VTE Prophylaxis will be ordered: Yes PG Care Time/CCT Total # of Minutes Spent Total Time Spent with Patient: Total time spent is greater than 50% in coordination of care (as documented) at patient's floor/unit and/or counseling patient: Coding Level of Care Code 35304 Initial Inpt Care Lvl 3 Diagnoses Involuntary movements R25.9 Dysarthria R47.1 Numbness and tingling R20.0; R20.2 Falls W19.XXXA Headache R51 Labile hypertension R09.89 Renal artery stenosis I70.1 Carotid artery disease I77.9 Vertebral artery stenosis I65.09 GERD (gastroesophageal reflux disease) K21.9 Hyperlipidemia E78.5 Anxiety F41.9 DVT prophylaxis Z29.9
[2020-03-31] MEDS ORDERED: PHARMACIST DISCHARGE MED REC CONSULT PRN (20:33)
[2020-03-31] MEDS ORDERED: ACETAMINOPHEN 325 MG TAB PO PRN (20:33)
[2020-03-31] MEDS ORDERED: IBUPROFEN 200 MG TAB PO PRN (20:33)
--- NOTE | 2020-03-31 20:49 | Emergency Department Note ---
History of Present Illness General Chief complaint: Hypertension Stated complaint: HIGH BLOOD PRESSURE,LEFT SIDED WEAKNESS,DOC REF Time Seen by Provider: 03/31/20 16:08 History of Present Illness Provider complaint: Weakness Onset (ago): week(s) 1 Location: head Severity: moderate Pain Consistency: + intermittent Maximum Pain Intensity: 5 Associated symptoms: + weakness; no chest pain, no fever/chills, no seizure and no shortness of breath 84-year-old female with history of stroke and TIA presents emergency department for weakness. Family at bedside states that over the last week, the patient has had episodes of difficulty speaking, being extremely tired, left-sided numbness, weakness in her left upper and lower extremity and they reported that she had a left facial droop. Family reports the symptoms resolved after a small amount of time however they keep happening. Today the patient is reporting a headache. She denies any falls. Not any blood thinners. Patient does have a history of TIA and CVA. Patient is also been told she has a history of carotid stenosis. Home Medications Home Medications Medication Instructions Recorded Confirmed Type Caltrate 600 plus D 2 tab PO DAILY 10/04/18 03/31/20 History aspirin [Aspir-Low] 81 mg PO DAILY 10/04/18 03/31/20 History lorazepam [Ativan] 0.5 mg PO HS PRN 10/04/18 03/31/20 History losartan [Cozaar] 50 mg PO BID 10/04/18 03/31/20 History omeprazole 20 mg PO DAILY 10/04/18 03/31/20 History paroxetine HCl [Paxil] 10 mg PO DAILY 10/04/18 03/31/20 History atorvastatin 80 mg PO DAILY 12/30/19 03/31/20 History furosemide 20 mg tablet 20 mg PO DAILY PRN tab 03/09/20 03/31/20 History metoprolol tartrate 50 mg tablet See Rx Instructions PO BID tab 03/09/20 03/31/20 History clonidine HCl 0.1 mg tablet 0.2 mg PO BID tab 03/25/20 03/31/20 History ibuprofen 200 mg tablet 400 mg PO DAILY PRN tab 03/25/20 03/31/20 History potassium chloride 20 mEq 20 meq PO DAILY PRN tab 03/25/20 03/31/20 History tablet,extended release cyanocobalamin (vitamin B-12) 0 mcg PO DAILY 03/31/20 03/31/20 History [Vitamin B-12] Allergies Allergy/AdvReac Type Severity Reaction Status Date / Time adhesive Allergy Unknown RED Verified 03/31/20 18:05 atenolol Allergy Unknown Unknown Verified 03/31/20 18:05 codeine Allergy Unknown Unknown Verified 03/31/20 18:05 indapamide Allergy Unknown Unknown Verified 03/31/20 18:05 Iodinated Contrast Media Allergy Unknown ` Verified 03/31/20 18:05 lisinopril Allergy Unknown Unknown Verified 03/31/20 18:05 nickel Allergy Unknown ALLERGY TO Verified 03/31/20 18:05 "METAL" nifedipine Allergy Unknown Unknown Verified 03/31/20 18:05 verapamil Allergy Unknown Unknown Verified 03/31/20 18:05 Latex, Natural Rubber Allergy Rash Verified 03/31/20 18:05 hydromorphone AdvReac Severe HALLUCINATI Verified 03/25/20 08:58 ON morphine AdvReac Unknown NAUSEA Verified 03/25/20 08:58 Past Med/Surg History Medical History Anxiety disorder Carotid artery disease Depression (Resolved) GERD (gastroesophageal reflux disease) (Resolved) Hyperlipidemia LDL goal <70 (Resolved) Labile hypertension Lumbar stenosis with neurogenic claudication (Resolved) Renal artery stenosis Thoracic compression fracture (Resolved) Surgical History Hx of cholecystectomy (Resolved) Family History Other FHx: heart disease FHx: hypertension Social History Preferred Language: Vietnamese Communication Ability: Effective Package Checker Required: No Beliefs That Will Affect Care: None Current Living Situation: Alone Feels Safe at Home: Yes Smoking Status: Never smoker Second Hand Exposure: No ; Hx Alcohol Use: No Hx Substance Use: No Review of Systems A total of 10 systems reviewed and were otherwise negative Physical Exam Vital Signs Vital Signs - 24 hr 03/31/20 15:36 03/31/20 16:25 03/31/20 16:27 Temperature 36.6 C Temperature Source Oral Pulse Rate 63 59 L 61 Pulse Rate from SpO2 Sensor 60 Pulse Rhythm Regular Respiratory Rate 16 23 20 Respiratory Depth Normal Blood Pressure 167/65 H 117/59 L Blood Pressure Mean 99 74 Blood Pressure Position Sitting Pulse Oximetry 96 95 Oxygen Delivery Method Room Air Room Air Room Air Sepsis Recent Fever Within 48 Hours No Sepsis Action Taken by Nursing No Action Required 03/31/20 16:30 03/31/20 16:40 03/31/20 16:50 Temperature Temperature Source Pulse Rate 57 L 59 L 59 L Pulse Rate from SpO2 Sensor 57 L 60 59 L Pulse Rhythm Respiratory Rate 18 20 21 Respiratory Depth Blood Pressure 143/56 H Blood Pressure Mean 97 Blood Pressure Position Pulse Oximetry 95 95 95 Oxygen Delivery Method Room Air Room Air Room Air Sepsis Recent Fever Within 48 Hours Sepsis Action Taken by Nursing 03/31/20 17:00 03/31/20 17:18 03/31/20 17:20 Temperature Temperature Source Pulse Rate 58 L 61 61 Pulse Rate from SpO2 Sensor 59 L 58 L 59 L Pulse Rhythm Respiratory Rate 16 18 19 Respiratory Depth Blood Pressure 117/53 L Blood Pressure Mean 76 Blood Pressure Position Pulse Oximetry 95 95 95 Oxygen Delivery Method Room Air Room Air Room Air Sepsis Recent Fever Within 48 Hours Sepsis Action Taken by Nursing 03/31/20 17:30 03/31/20 17:40 03/31/20 17:50 Temperature Temperature Source Pulse Rate 60 62 59 L Pulse Rate from SpO2 Sensor 62 60 60 Pulse Rhythm Respiratory Rate 24 16 17 Respiratory Depth Blood Pressure 145/61 H Blood Pressure Mean 100 Blood Pressure Position Pulse Oximetry 92 96 96 Oxygen Delivery Method Room Air Room Air Room Air Sepsis Recent Fever Within 48 Hours Sepsis Action Taken by Nursing 03/31/20 18:00 03/31/20 18:01 03/31/20 18:10 Temperature Temperature Source Pulse Rate 59 L 62 59 L Pulse Rate from SpO2 Sensor 60 62 62 Pulse Rhythm Respiratory Rate 17 20 15 Respiratory Depth Blood Pressure 187/67 H Blood Pressure Mean 91 Blood Pressure Position Pulse Oximetry 95 95 96 Oxygen Delivery Method Room Air Room Air Room Air Sepsis Recent Fever Within 48 Hours Sepsis Action Taken by Nursing 03/31/20 18:20 03/31/20 18:30 03/31/20 18:40 Temperature Temperature Source Pulse Rate 63 67 66 Pulse Rate from SpO2 Sensor 63 66 69 Pulse Rhythm Respiratory Rate 17 19 20 Respiratory Depth Blood Pressure 199/107 H Blood Pressure Mean 155 Blood Pressure Position Pulse Oximetry 97 97 97 Oxygen Delivery Method Room Air Room Air Room Air Sepsis Recent Fever Within 48 Hours Sepsis Action Taken by Nursing Physical Exam GENERAL: She is oriented to person, place, and time. She appears well-developed and well-nourished. She does not appear distressed. HENT: Exam performed. -Head: Normocephalic and atraumatic. -Right Ear: External ear normal. No mastoid tenderness. -Left Ear: External ear normal. No mastoid tenderness. -Mouth/Throat: The oropharynx is clear and moist. No trismus in the jaw. No dental abscesses or uvula swelling. No oropharyngeal exudate or tonsillar abscesses. EYES: Conjunctivae and EOM are normal. Pupils are equal, round, and reactive to light. Right eye exhibits no discharge. Left eye exhibits no discharge. No scleral icterus. NECK: Normal range of motion. Neck supple. No JVD present. No spinous process tenderness present. No carotid bruit present. No rigidity. No tracheal deviation and normal range of motion present. No Brudzinski's sign and no Kernig's sign noted. CV: Normal rate, regular rhythm, normal heart sounds and intact distal pulses. There is no peripheral edema. Palpable radial pulses bue. PULM/CHEST: Effort normal and breath sounds normal. No respiratory distress. No stridor. She has no wheezes. She has no rales. -Chest Wall: She exhibits no tenderness. ABD: The abdomen is soft. Bowel sounds are normal. She has no distension. No mass is present. There is no tenderness. There is no rebound, no guarding, no Rossi's sign and no tenderness at McBurney's point. Rovsig negative MUSC/SKEL: Normal range of motion. There is no peripheral edema, tenderness or deformity. LYMPH: No cervical adenopathy. NEURO: She is alert and oriented to person, place, and time. She has normal strength. No cranial nerve deficit or sensory deficit. Coordination and gait normal. GCS eye subscore is 4. GCS verbal subscore is 5. GCS motor subscore is 6. Cerebellar tests wnl. SKIN: Skin is warm and dry. She is not diaphoretic. PSYCH: She has a normal mood and affect. Behavior is normal. Judgment and thought content normal. Course Course 1614: The patient was evaluated in room B3. A complete history and physical exam was performed. EMR reviewed. Patient had a CT of the neck March 29 which showed carotid artery stenosis bilaterally, 67% of the right ICA, 50% of the left ICA, and 75% stenosis of the left vertebral artery, these are unchanged from her preceding CTAs. 1725: Vital signs stable. Labs within normal limits with exception of leukocytosis of 13.14. Imaging within normal limits. Patient will be admitted for TIA versus stroke. Dr. Yan [facility] hospitalist was made aware of the patient. Medical Decision Making Laboratory Data Result diagrams: 03/31/20 16:29 03/31/20 16:29 Lab Results 03/31/20 03/31/20 03/31/20 Range/Units 16:29 16:29 16:29 WBC 13.14 H (4.8-10.8) K/uL RBC 4.17 L (4.2-5.4) M/uL Hgb 12.1 (12.0-16.0) g/dL Hct 35.6 L (37-47) % MCV 85.4 (80-100) fL MCH 29.0 (25-34) pg MCHC 34.0 (32-36) g/dL RDW Std Deviation 42.3 (36.4-46.3) fL RDW Coeff of Shara 13.6 (11.5-14.5) % Plt Count 285 (130-400) K/uL MPV 9.8 (7.4-10.4) fL Immature Gran % (Auto) 0.3 % Neut % (Auto) 79.8 % Lymph % (Auto) 12.8 % [place] % (Auto) 6.6 % Eos % (Auto) 0.4 % Baso % (Auto) 0.1 % Immature Gran # (Auto) 0.04 H (0.00-0.02) K/uL Neut # (Auto) 10.49 H (1.4-6.5) K/uL Lymph # (Auto) 1.68 (1.2-3.4) K/uL [place] # (Auto) 0.87 H (0.11-0.59) K/uL Eos # (Auto) 0.05 (0-0.5) K/uL Baso # (Auto) 0.01 (0-0.2) K/uL PT 10.6 (9.0-12.0) Seconds INR 1.0 (0.9-1.1) APTT 27.3 (21.0-31.0) Seconds PTT Ratio 1.0 Sodium 135 L (136-145) mmol/L Potassium 3.9 (3.5-5.1) mmol/L Chloride 101 (98-107) mmol/L Carbon Dioxide 28 (21-32) mmol/L Anion Gap 5.0 (3-11) BUN 34 H (7-18) mg/dl Creatinine 1.19 (0.6-1.2) mg/dl Est Cr Clr Drug Dosing 24.7 ml/min Est GFR ( Amer) 47.9 Est GFR (Non-Af Amer) 41.3 BUN/Creatinine Ratio 28.4 H (10-20) Glucose 113 H (70-99) mg/dl Calcium 9.8 (8.5-10.1) mg/dl Magnesium 1.8 (1.8-2.4) mg/dl Total Bilirubin 0.5 (0.2-1) mg/dl AST 27 (15-37) U/L ALT 56 (12-78) U/L Alkaline Phosphatase 172 H (45-117) U/L Troponin I 0.016 (0-0.045) ng/ml Total Protein 7.4 (6.4-8.2) gm/dl Albumin 3.4 (3.4-5.0) gm/dl Globulin 4.0 (2.5-4.0) gm/dl Albumin/Globulin Ratio 0.8 L (0.9-2) Blood Type Antibody Screen 03/31/20 Range/Units 16:32 WBC (4.8-10.8) K/uL RBC (4.2-5.4) M/uL Hgb (12.0-16.0) g/dL Hct (37-47) % MCV (80-100) fL MCH (25-34) pg MCHC (32-36) g/dL RDW Std Deviation (36.4-46.3) fL RDW Coeff of Shara (11.5-14.5) % Plt Count (130-400) K/uL MPV (7.4-10.4) fL Immature Gran % (Auto) % Neut % (Auto) % Lymph % (Auto) % [place] % (Auto) % Eos % (Auto) % Baso % (Auto) % Immature Gran # (Auto) (0.00-0.02) K/uL Neut # (Auto) (1.4-6.5) K/uL Lymph # (Auto) (1.2-3.4) K/uL [place] # (Auto) (0.11-0.59) K/uL Eos # (Auto) (0-0.5) K/uL Baso # (Auto) (0-0.2) K/uL PT (9.0-12.0) Seconds INR (0.9-1.1) APTT (21.0-31.0) Seconds PTT Ratio Sodium (136-145) mmol/L Potassium (3.5-5.1) mmol/L Chloride (98-107) mmol/L Carbon Dioxide (21-32) mmol/L Anion Gap (3-11) BUN (7-18) mg/dl Creatinine (0.6-1.2) mg/dl Est Cr Clr Drug Dosing ml/min Est GFR ( Amer) Est GFR (Non-Af Amer) BUN/Creatinine Ratio (10-20) Glucose (70-99) mg/dl Calcium (8.5-10.1) mg/dl Magnesium (1.8-2.4) mg/dl Total Bilirubin (0.2-1) mg/dl AST (15-37) U/L ALT (12-78) U/L Alkaline Phosphatase (45-117) U/L Troponin I (0-0.045) ng/ml Total Protein (6.4-8.2) gm/dl Albumin (3.4-5.0) gm/dl Globulin (2.5-4.0) gm/dl Albumin/Globulin Ratio (0.9-2) Blood Type A Positive Antibody Screen NEGATIVE Imaging Data Radiologist's Impression: CT head/brain wo con CT DOSE: 537.48 mGy.cm HISTORY: Sternal Stroke evaluation TECHNIQUE: Multiaxial CT images of the head were performed without the use of intravenous contrast. A dose lowering technique was utilized adhering to the principles of ALARA. Comparison: 07/22/2019 Findings: The paranasal sinuses and mastoid air cells are clear. The calvarium and skull base are intact. The ventricles and sulci are within normal limits. There is no mass, hematoma, midline shift, or acute infarct. Impression: No acute intracranial abnormality. Mild age-related atrophy and chronic small ve ssel change ACT 112: Negative or not required by law. The above report was generated using voice recognition software. It may contain grammatical, syntax or spelling errors. Electronically signed by: Dank Archer M.D. 03/31/2020 5:16 PM Dictated: 03/31/201713 Transcribed: 03/31/201713 ECG Data Indication: + weakness Rate (beats per minute): 55 Rhythm: + normal sinus ECG Intervals/blocks: + Normal QRS, + Normal [place] and + Normal QT-c ECG ST segments: + Normal ST segments and + T-wave inversions (V4 through V6) Change: no significant change (From the EKG done January 01, 2020) MDM Narrative Vital signs stable. Labs within normal limits with exception of leukocytosis of 13.14. Imaging within normal limits. Patient will be admitted for TIA versus stroke. Dr. Yan [facility] hospitalist was made aware of the patient. Impression & Plan TIA (transient ischemic attack) Discharge Plan Visit Data Chief Complaint: Hypertension Stated Complaint: HIGH BLOOD PRESSURE,LEFT SIDED WEAKNESS,DOC REF ED Provider: Aravind Maza Discharge Problem: TIA (transient ischemic attack) Patient Disposition: Admitted As Inpatient Discharge Instructions Interventions: ED Discharge Assessment Last Done: 03/31/20 19:59
[2020-03-31] MEDS ORDERED: cloNIDine HCL 0.2 MG TAB PO SCH (21:00)
[2020-03-31] MEDS ORDERED: METOPROLOL TARTRATE 50 MG TAB PO SCH (21:00)
[2020-03-31] MEDS: LORazepam 0.5 MG TAB PO PRN (21:13)
[2020-03-31] MEDS ORDERED: GADOBUTROL 65ML VIAL IV PRN (21:49)
[2020-03-31] MEDS: ENOXAPARIN INJ 30 MG/0.3 ML SYR SQ SCH (22:43)
[2020-03-31] MEDS: METOPROLOL TARTRATE 100 MG TAB PO SCH (22:44)
[2020-03-31] MEDS: LOSARTAN POTASSIUM 50 MG TAB PO SCH (22:44)
[2020-03-31] MEDS: cloNIDine HCL 0.1 MG TAB PO SCH (23:05)
[2020-03-31] MEDS: PARoxetine HCL 10 MG TAB PO SCH (23:42)
[2020-04-01] MEDS ORDERED: HydrALAZINE HCL 20 MG/ML VIAL IV PRN (00:26)
[2020-04-01] MEDS: cloNIDine HCL 0.1 MG TAB PO SCH ×3 (04:05→21:21)
--- NOTE | 2020-04-01 06:55 | Magnetic Resonance Report ---
MRI OF THE BRAIN WITHOUT AND WITH IV CONTRAST CLINICAL HISTORY: Left-sided weakness and numbness. Stroke versus TIA. COMPARISON STUDY: Head CT dated 03/31/2020, MRI the brain dated 09/29/2009 TECHNIQUE: MRI of the brain was performed from the vertex to the skull base utilizing various T1 and T2 weighted sequences. Following the IV administration of 6 mL of Gadavist contrast, additional enhan sergio images were obtained. FINDINGS: Sagittal T1, axial diffusion, proton density and T2 weighted axial, coronal FLAIR, and pre and post a xial T1-weighted images were acquired. These were supplemented with post gadolinium coronal T1 weight ed images. No intra or extra-axial mass lesions are visualized. Axial diffusion-weighted images reveal no evidence of acute or subacute infarction. There is no evidence of ventricular dilatation. Proton density T2-weighted and FLAIR images reveal scattered foci of increased T2 signal within the w mavis matter, likely on a small vessel basis. There are no abnormal flow voids. There is no evidence of pathologic enhancement. Degenerative changes are present within the upper cervical spine with possible spinal stenosis IMPRESSION: 1. No acute intracranial findings 2. No evidence of acute or subacute infarction 3. White matter disease and age-related involutional change 4. No evidence of intracranial mass ACT 112: Negative or not required by law. Electronically signed by: Crispin Wong M.D. 04/01/2020 6:54 AM
[2020-04-01] MEDS: CYANOCOBALAMIN 500 MCG TABLET (VITAMIN B-12) PO SCH (08:32)
[2020-04-01] MEDS: FUROSEMIDE 20 MG TAB PO SCH (08:32)
[2020-04-01] MEDS: PANTOprazole 40 MG TAB PO SCH (08:32)
[2020-04-01] MEDS: METOPROLOL TARTRATE 25 MG TAB PO SCH (08:32)
[2020-04-01] MEDS: ASPIRIN 81 MG ECTAB PO SCH (08:32)
[2020-04-01] MEDS: ATORVASTATIN 40 MG TAB PO SCH (08:32)
[2020-04-01] MEDS: LOSARTAN POTASSIUM 50 MG TAB PO SCH ×2 (08:32→21:21)
[2020-04-01] MEDS: CALCIUM 600MG + VIT D 400 IU TAB PO SCH (08:32)
--- NOTE | 2020-04-01 08:51 | Hospitalist Progress Note ---
Date of Service April 01, 2020 Assessment & Plan (1) Involuntary movements: With involuntary left-sided movements, left sided intermittent numbness, falls where legs give out, intermittent dysarthria and left-sided facial droop, and with right-sided occipital and right periorbital headaches. Neurological issues intermittently over the last 1 to 2 weeks, headaches have been longer for the last 2 to 3 months With a history of stable moderate carotid artery and vertebral artery disease not likely contributing to current symptoms. Differential includes partial seizures, cervical myelopathy, TIA/CVA Also with very labile and uncontrolled hypertension over the last several months -Stroke order set -Neurological consultation requested further testing including MRI of the C- spine with and without contrast EEG, vitamin D level TSH anti-TPO antibodies urinalysis chest x-ray with consideration of transitioning antibiotic clonazepam and initiating Keppra after EEG is completed MRI of the brain IMPRESSION: 1. No acute intracranial findings 2. No evidence of acute or subacute infarction 3. White matter disease and age-related involutional change 4. No evidence of intracranial mass -Continue aspirin, statin -PT/OT/speech therapy evaluations (2) Dysarthria: As above (3) Numbness and tingling: As above (4) Falls: Likely from focal myoclonus -Had recent echocardiogram in 12/2019 without significant valvular disease and with normal EF -Continue telemetry monitoring PT/OT consults (5) Headache: Resolved -Unrevealing MRI of the brain Has attempted injections with pain management-not successful thus far - -Hemp cream that she has at home actually helps-advised her to bring this in from home -Tylenol and ibuprofen as needed (6) Labile hypertension: With hypertensive urgency continue home medications of metoprolol tartrate 75 mg p.o. every morning and 100 mg p.o. every afternoon, clonidine 0.2 mg p.o. twice daily with an extra 0.1 mg p.o. at 4 in the morning when she wakes up every day to go the bathroom, losartan 50 mg p.o. twice daily -Nephrology recently suggested changing to clonidine patch, adding on low-dose loop diuretic, and eventually adding on low-dose aldosterone antagonist -Will make her as needed Lasix daily dose of 20 mg once daily -Add on IV hydralazine as needed SBP greater than 180 (7) Renal artery stenosis: Stable renal function -Follows with nephrology with medical management -Continue aspirin and statin (8) Carotid artery disease: Continue aspirin and statin Recent CT angiogram shows 67% stenosis of the R ICA, 50% stenosis of the LICA (9) Vertebral artery stenosis: Recent CT angiogram head and neck shows left vertebral origin artery 75% stenosis -Follows with vascular surgery symptoms likely not consistent with issues originating from the stenosis (10) GERD (gastroesophageal reflux disease): -Continue daily PPI (11) Hyperlipidemia: Continue statin (12) Anxiety: Continue PRN lorazepam and Paxil 10 mg daily with recommendations to transition the lorazepam to clonazepam per neurology (13) DVT prophylaxis: Lovenox SQ, SCDs PT/OT consults placed Comes from home, lives alone with daughter nearby Admission and Anticipated Discharge Date Admission Date: March 31, 2020 Subjective pt states persistent intermittent periods of spasm. she has no other issues Review of Systems Review of Systems: Mild distress and fatigue no headache, blurry or double vision no speech or swallowing issues no chest pain, pressure or palpitations no shortness of breath, cough or wheezes no abdominal pain, nausea or vomiting, diarrhea or constipation no dysuria, hematuria or frequency no focal joint pain or swelling no back pain, CVA tenderness or radicular pain no bruising, bleeding or rashes Has focal tremulous weakness of left arm and leg no complaints or anxiety or depression. Physical Exam Physical Exam: The patient appeared well nourished and normally developed. Vital signs as documented. Head exam is normocephalic atraumatic no scleral icterus Neck is without JVD, thyromegaly, or carotid bruits. Lungs are clear to auscultation, no focal loss of breath sounds Cardiac exam, Rhythm is regular.. No murmurs, rubs or gallops. Abdominal exam reveals normal bowel sounds, soft non tender, no masses Extremities are nonedematous and both pedal pulses are normal. Neurologic exam is alert and oriented, she does have reproducible tremor of the arm and leg worse with the arm her leg shakes and does prevent her from walking smoothly Skin is without bruises or rashes Psychologically is without concerns for anxiety or depression Results & Data Results & Data ([facility]) Vital Signs (Past 12 Hours) Vital Signs Temp Pulse Pulse Resp BP BP Pulse Ox 04/01/20 07:58 97.9 F 61 18 148/73 H 97 04/01/20 07:23 57 L 04/01/20 03:42 98.1 F 61 18 182/62 H 93 03/31/20 23:32 97.5 F L 59 L 20 158/53 H 96 03/31/20 23:15 63 PG Care Time/CCT Total # of Minutes Spent Total Time Spent with Patient: Total time spent is greater than 50% in coor dination of care (as documented) at patient's floor/unit and/or counseling patient: Coding Level of Care Code 76061 Subseq Hosp Care Lvl 3 Diagnoses Involuntary movements R25.9 Dysarthria R47.1 Numbness and tingling R20.0; R20.2 Falls W19.XXXA Headache R51 Labile hypertension R09.89 Renal artery stenosis I70.1 Carotid artery disease I77.9 Vertebral artery stenosis I65.09 GERD (gastroesophageal reflux disease) K21.9 Hyperlipidemia E78.5 Anxiety F41.9 DVT prophylaxis Z29.9
[2020-04-01] MEDS ORDERED: PARoxetine HCL 10 MG TAB PO SCH (09:00)
[2020-04-01 09:08] LABS: Basophils # (auto) 0.02 K/uL (0-0.2); Basophils % (auto) 0.2 %; Eosinophils # (auto) 0.19 K/uL (0-0.5); Hematocrit (blood only) 34.3 % (37-47); Hemoglobin 11.5 g/dL (12.0-16.0); Immature Granulocytes # (auto) 0.02 K/uL (0.00-0.02); Immature Granulocytes % (auto) 0.2 %; Lymphocytes # (auto) 1.83 K/uL (1.2-3.4); Lymphocytes % (auto) 19.5 %; Mean Corpuscular Hemoglobin 28.8 pg (25-34); Mean Corpuscular Hgb Conc 33.5 g/dL (32-36); Mean Platelet Volume 10.1 fL (7.4-10.4); Monocytes # (auto) 0.71 K/uL (0.11-0.59); Monocytes % (auto) 7.6 %; Neutrophils # (auto) 6.63 K/uL (1.4-6.5); Neutrophils % (auto) 70.5 %; Platelet Count 268 K/uL (130-400); RDW Coefficient of Variation 13.7 % (11.5-14.5); RDW Standard Deviation 43.4 fL (36.4-46.3); Red Blood Count 3.99 M/uL (4.2-5.4)
[2020-04-01 09:23] LABS: BUN Creatinine Ratio 30.9 (10-20); Calcium 9.5 mg/dl (8.5-10.1); Creatinine Clr Calc Pharmacy 29.4 ml/min; Est GFR (African American) 56.3; Est GFR (Non-African American) 48.6; Potassium 4.1 mmol/L (3.5-5.1)
[2020-04-01 11:08] LABS: Estimated Average Glucose 128 mg/dl; Hemoglobin A1C 6.1 % (4.5-5.6)
--- NOTE | 2020-04-01 14:50 | Electrocardiogram Report ---
Test Reason : Blood Pressure : / mmHG Vent. Rate : 055 BPM Atrial Rate : 055 BPM P-R Int : 150 ms QRS Dur : 088 ms QT Int : 430 ms P-R-T Axes : 044 010 057 degrees QTc Int : 411 ms Sinus bradycardia with sinus arrhythmia Abnormal ECG When compared with ECG of 01-JAN-2020 07:08, Premature atrial complexes are no longer Present Confirmed by Edil Storey ([id number]) on 04/01/2020 2:50:10 PM Referred By: Bhavesh Jack Confirmed By:Edil Storey
--- NOTE | 2020-04-01 15:30 | Neurology Consultation ---
Date of Consultation April 01, 2020 Assessment & Plan (1) Focal myoclonus: Avril Ramon is an 84 yo woman w/ PMH of HTN, HLD, known carotid artery stenosis, GERD, renal artery stenosis and anxiety/depression who presents to [facility] on 03/31/2020 after a several week history of left upper and left lower extremity jerking with concern for possible TIA. # Focal myoclonus: left-sided, semi-abrupt onset several weeks ago. Ddx includes epilepsia partialis vs 2/2 underlying neurodegenerative process vs other cause. Will complete work-up as below to rule out treatable causes. MRI brain was slightly concerning for possible cortical basal degeneration as midline structures could be consistent with hummingbird sign. -MRI cervical spine with and without contrast -Routine EEG -Vitamin D level, TSH, anti-TPO antibodies, urinalysis, chest x-ray -Would consider holding as needed Ativan at night with plan to transition to low-dose Klonopin following EEG -Plan to start Keppra 500 mg twice daily after completion of EEG #Carotid artery stenosis/vertebral artery stenosis: Stable from prior imaging -Continue aspirin 81 mg daily and atorvastatin 80 mg daily Thank you for this interesting consult. Plan of care discussed with primary team. Please call or text questions. (2) Vertebral artery stenosis: (3) Carotid artery disease: (4) Labile hypertension: (5) Renal artery stenosis: History of Present Illness Attending Physician: Juan A Mcdowell MD History of Present Illness Avril Ramon is an 84 yo woman w/ PMH of HTN, HLD, known carotid artery stenosis, GERD, renal artery stenosis and anxiety/depression who presents to [facility] on 03/31/2020 after a several week history of left upper and left lower extremity jerking with concern for possible TIA. In the ED, patient was afebrile, BP 167/65, heart rate 63, satting 96% on room air. Labs in the ED notable for WBC 13.14, hemoglobin 12.1, platelets 35, sodium mildly low at 135, potassium 3.9, BUN 34, creatinine 1.19, glucose 113, INR 1.0, magnesium/calcium within normal, LFTs within normal, elevated alkaline phosphatase 172, troponin 0 0.016. Further lab work showed LDL 65 and A1c 6.1. Independently reviewed CT head that showed generalized atrophy with bilateral basal ganglia calcifications (left more than right), no hemorrhage or hypodensity. CTA of the neck shows moderate right ICA stenosis with complex plaque, mild left ICA stenosis of the bifurcation, diffuse atherosclerosis of the bilateral cavernous ICAs and severe stenosis of the left vertebral artery at the origin. MRI of the brain was notable for severe generalized atrophy maximal in the frontal temporal lobes, moderate small vessel disease, several small lacunar infarcts. On examination today, Avril reports that she started to have "jerking" that started in her left knee several weeks ago and would cause her to lose balance and sometimes fall. In the last week, she has noticed jerking in her left upper extremity as well. She denies having any clear triggers to this but reports that it only happens when she is moving her arm or when she is standing. She denies any loss of consciousness, tongue biting, loss of bowel or bladder. She does report that she does not feel like she has control over her arm or her leg when these events are happening. She denies any medication changes other than dose of clonidine. Denies any recent illness or fevers; does endorse several recent falls last one yesterday where she did hit her head. She does not have a family history of Parkinson's disease or Taty's disease but did note that her mother had dementia when she was elderly. There is no family history of epilepsy. She denies any history of cardiac arrest or hypoxia in the past. On examination, she was noted to have stimulus-induced myoclonus in her left arm centered around her elbow and wrist, as well as myoclonus centered around her left knee that caused imbalance when she was walking with a walker. Allergies Allergy/AdvReac Type Severity Reaction Status Date / Time adhesive Allergy Unknown RED Verified 03/31/20 18:05 atenolol Allergy Unknown Unknown Verified 03/31/20 18:05 codeine Allergy Unknown Unknown Verified 03/31/20 18:05 indapamide Allergy Unknown Unknown Verified 03/31/20 18:05 Iodinated Contrast Media Allergy Unknown ` Verified 03/31/20 18:05 lisinopril Allergy Unknown Unknown Verified 03/31/20 18:05 nickel Allergy Unknown ALLERGY TO Verified 03/31/20 18:05 "METAL" nifedipine Allergy Unknown Unknown Verified 03/31/20 18:05 verapamil Allergy Unknown Unknown Verified 03/31/20 18:05 Latex, Natural Rubber Allergy Rash Verified 03/31/20 18:05 hydromorphone AdvReac Severe HALLUCINATI Verified 03/25/20 08:58 ON morphine AdvReac Unknown NAUSEA Verified 03/25/20 08:58 Home Medications Home Medications Medication Instructions Recorded Confirmed Type Caltrate 600 plus D 2 tab PO DAILY 10/04/18 03/31/20 History aspirin [Aspir-Low] 81 mg PO DAILY 10/04/18 03/31/20 History lorazepam [Ativan] 0.5 mg PO HS PRN 10/04/18 03/31/20 History losartan [Cozaar] 50 mg PO BID 10/04/18 03/31/20 History omeprazole 20 mg PO DAILY 10/04/18 03/31/20 History paroxetine HCl [Paxil] 10 mg PO DAILY 10/04/18 03/31/20 History atorvastatin 80 mg PO DAILY 12/30/19 03/31/20 History furosemide 20 mg tablet 20 mg PO DAILY PRN tab 03/09/20 03/31/20 History metoprolol tartrate 50 mg tablet See Rx Instructions PO BID tab 03/09/20 03/31/20 History clonidine HCl 0.1 mg tablet 0.2 mg PO BID tab 03/25/20 03/31/20 History ibuprofen 200 mg tablet 400 mg PO DAILY PRN tab 03/25/20 03/31/20 History potassium chloride 20 mEq 20 meq PO DAILY PRN tab 03/25/20 03/31/20 History tablet,extended release cyanocobalamin (vitamin B-12) 0 mcg PO DAILY 03/31/20 03/31/20 History [Vitamin B-12] Patient History Medical History Anxiety Anxiety disorder Carotid artery disease Depression (Resolved) GERD (gastroesophageal reflux disease) Headache Hyperlipidemia Hyperlipidemia LDL goal <70 (Resolved) Labile hypertension Lumbar stenosis with neurogenic claudication (Resolved) Renal artery stenosis Thoracic compression fracture (Resolved) Vertebral artery stenosis Surgical History History of bladder surgery History of hysterectomy History of lumbar spinal fusion History of tonsillectomy History of total bilateral knee replacement Hx of cholecystectomy (Resolved) Family History Other FHx: heart disease FHx: hypertension Social History Preferred Language: Welsh Communication Ability: Effective Bundle Cutter Required: No Beliefs That Will Affect Care: Cheondoism marital status: / Current Living Situation: Alone Other Information That Helps Us Care for You: No Feels Safe at Home: Yes Safety Concerns: Feels Safe At This Time Smoking Status: Never smoker Do You Dip or Chew Tobacco: No ; Second Hand Exposure: No ; Tobacco Cessation Education Requested by Patient: No Hx Alcohol Use: No Hx Substance Use: No Review of Systems 2 Review of Systems: 14 point review of systems completed and negative except as in HPI. Exam (Neuro) Physical Exam: General Exam: GEN: NAD, sitting in bed. HEENT: No conjunctival injection, no rhinorrhea. CV: RRR, no peripheral edema PULM: Nonlabored respirations on room air. Neuro Exam: MS: Awake and Alert. Oriented to person, place, and date. Speech fluent and appropriate without dysarthria or paraphasic errors. Language intact including naming, comprehension, repetition. Cognition and memory grossly intact. Attention intact. No neglect. CN: Visual jara full. No extinction to double simultaneous stimuli. No optic disc edema on fundoscopic exam. PERRLA OU. EOMI except for inability to bury the sclera of the right eye on lateral gaze, no nystagmus. Facial sensation intact to LT. Facial muscles full and symmetric. Hearing intact to conversation. Uvula midline with symmetric palatal elevation. Shoulder shrug normal. Tongue midline. MOTOR: Normal bulk and tone. No pronator drift. BUE strength 5/5 at deltoids, biceps, triceps, wrist flexors and extensors, and hand grasp bilaterally. BLE strength 5/5 at iliopsoas, hamstrings, quadriceps, tibialis anterior, and gastrocnemius bilaterally. +myoclonus noted with action and on outstretch. REFLEXES: 2+ at biceps, triceps, brachioradialis, absent patella and absent Achilles bilaterally. Toes mute bilaterally. SENSORY: Intact to LT without extinction to double simultaneous stimuli. Vibration and temperature intact throughout. COORDINATION: No dysmetria or ataxia on [id number] bilaterally. Normal Gisell bilaterally. GAIT: Slightly broad based gait, left knee started to jerk rhythmically for several seconds when up and walking with the walker (maintained consciousness). Romberg deferred given fall risk. Results & Data ([facility]) Vital Signs (Past 12 Hours) Vital Signs Temp Pulse Pulse Resp BP Pulse Ox 04/01/20 11:28 36.5 C 56 L 18 121/63 96 04/01/20 07:58 36.6 C 61 18 148/73 H 97 04/01/20 07:23 57 L 04/01/20 03:42 36.7 C 61 18 182/62 H 93 PG Care Time/CCT Total # of Minutes Spent Total Time Spent with Patient: Total time spent is greater than 50% in coordination of care (as documented) at patient's floor/unit and/or counseling patient: Coding Level of Care Code 33894 Initial Inpt Care Lvl 3 Diagnoses Focal myoclonus G25.3 Vertebral artery stenosis I65.09 Carotid artery disease I77.9 Labile hypertension R09.89 Renal artery stenosis I70.1
[2020-04-01] MEDS: LORazepam 0.5 MG TAB PO PRN (18:03)
--- NOTE | 2020-04-01 18:13 | XRay Report ---
TWO VIEW CHEST CLINICAL HISTORY: Upper extremity weakness. Clinical concern for apical lung lesion. FINDINGS: PA and lateral chest radiographs are compared to study dated 12/31/2019. Correlation is made with CT angiogram of the neck dated 03/29/2020. The heart is top mildly enlarged noting atherosclerotic calcification of the thoracic aorta. Enlargement of the pulmonary arteries suggests pulmonary artery hypertension. The pulmonary vasculature is noncongested. Chronic additional thickening is similar to previous. There is mild bibasilar scarring/atelectasis. There is no pneumothorax. The skeletal struc tures are osteopenic. The bony thorax appears intact. Advanced arthritic change is seen in the should ers. Postoperative change with fusion hardware and spinal rods is noted at the thoracolumbar junction . IMPRESSION: 1. Mild cardiomegaly with no active disease in the chest. 2. No apical pulmonary lesion is identified as clinically queried. This is confirmed on the 03/29/2020 CT angiogram of the neck which included the lung apices. ACT 112: Negative or not required by law. Electronically signed by: Armin Howard M.D. 04/01/2020 6:12 PM
[2020-04-01 18:37] LABS: Appearance Urine Clear (Clear); Bilirubin Urine Negative (Negative); Blood Urine Negative (Negative); Color Urine Yellow; Glucose Urine UA Negative (Negative); Ketones Urine Negative (Negative); Leukocyte Esterase Urine Negative (Negative); Nitrite Urine Negative (Negative); Protein Urine Negative (Negative); Specific Gravity Urine 1.013 (1.000-1.030); Urobilinogen Urine Negative (Negative)
[2020-04-01] MEDS: METOPROLOL TARTRATE 100 MG TAB PO SCH (21:21)
[2020-04-01] MEDS: ENOXAPARIN INJ 30 MG/0.3 ML SYR SQ SCH (21:21)
[2020-04-01] MEDS: PARoxetine HCL 10 MG TAB PO SCH (21:22)
[2020-04-02] MEDS: cloNIDine HCL 0.1 MG TAB PO SCH ×3 (04:25→20:31)
[2020-04-02 07:54] LABS: Basophils # (auto) 0.02 K/uL (0-0.2); Basophils % (auto) 0.2 %; Eosinophils # (auto) 0.34 K/uL (0-0.5); Eosinophils % (auto) 3.9 %; Hematocrit (blood only) 33.8 % (37-47); Hemoglobin 11.5 g/dL (12.0-16.0); Immature Granulocytes # (auto) 0.02 K/uL (0.00-0.02); Immature Granulocytes % (auto) 0.2 %; Lymphocytes # (auto) 1.71 K/uL (1.2-3.4); Lymphocytes % (auto) 19.7 %; Mean Corpuscular Hemoglobin 29.3 pg (25-34); Monocytes % (auto) 5.8 %; Neutrophils # (auto) 6.07 K/uL (1.4-6.5); Neutrophils % (auto) 70.2 %; Platelet Count 238 K/uL (130-400); RDW Coefficient of Variation 13.5 % (11.5-14.5); RDW Standard Deviation 42.8 fL (36.4-46.3); Red Blood Count 3.93 M/uL (4.2-5.4); White Blood Count 8.66 K/uL (4.8-10.8)
[2020-04-02] MEDS: PANTOprazole 40 MG TAB PO SCH (07:56)
[2020-04-02] MEDS: FUROSEMIDE 20 MG TAB PO SCH (07:56)
[2020-04-02] MEDS: ASPIRIN 81 MG ECTAB PO SCH (07:56)
[2020-04-02] MEDS: CYANOCOBALAMIN 500 MCG TABLET (VITAMIN B-12) PO SCH (07:57)
[2020-04-02] MEDS: METOPROLOL TARTRATE 25 MG TAB PO SCH (07:57)
[2020-04-02] MEDS: ATORVASTATIN 40 MG TAB PO SCH (07:59)
[2020-04-02] MEDS: CALCIUM 600MG + VIT D 400 IU TAB PO SCH (07:59)
[2020-04-02] MEDS: LOSARTAN POTASSIUM 50 MG TAB PO SCH ×2 (08:00→20:32)
[2020-04-02 08:22] LABS: BUN Creatinine Ratio 26.6 (10-20); Calcium 9.2 mg/dl (8.5-10.1); Creatinine Clr Calc Pharmacy 31.5 ml/min; Est GFR (African American) 61.3; Est GFR (Non-African American) 52.9; Potassium 3.9 mmol/L (3.5-5.1)
[2020-04-02 08:32] LABS: Thyroid Stimulating Hormone 1.49 uIu/ml (0.300-4.500)
[2020-04-02 09:17] LABS: Lyme Ab IgG w/WB Rflx Negative (Negative); Lyme Ab IgM w/WB Rflx Negative (Negative)
[2020-04-02] MEDS: LORazepam 0.5 MG TAB PO PRN (11:21)
[2020-04-02] MEDS ORDERED: GADOBUTROL 65ML VIAL IV PRN (12:40)
--- NOTE | 2020-04-02 13:03 | Magnetic Resonance Report ---
CERVICAL SPINE MRI WITH AND WITHOUT CONTRAST HISTORY: focal myoclonus and upper extremity weakness TECHNIQUE: Multiplanar multisequence MRI of the cervical spine was performed both before and after th e use of intravenous contrast. COMPARISON STUDY: Cervical spine CT 07/22/2019. FINDINGS: Mild reversal the normal lordotic curvature. Fusion of the C2-C3 vertebral bodies, unchange d. Moderate facet degenerative changes throughout the cervical spine. There is 2 mm of anterolisthesi s of C2 on C3, unchanged. The visualized posterior fossa is unremarkable. The cervical spinal cord de monstrates a normal signal intensity. There is an old moderate anterior wedge-shaped compression defo rmity at T5. Broad-based posterior disc bulges at T3-T4 and T5-T6 resulting in mild central canal shahab rowing. There is severe disc space narrowing at C4-C5, C5-C6, and C6-C7, unchanged. No acute fracture within the cervical spine. No abnormal enhancement. C2-C3: Broad-based posterior disc osteophyte complex resulting in mild central canal narrowing. No si gnificant neural foraminal narrowing. C3-C4: Bony proliferation at the fused disc space resulting in mild cord deformity and moderate centr al canal narrowing. There is mild right and severe left-sided neural foraminal narrowing due to the u ncovertebral and facet hypertrophy. C4-C5: Broad-based posterior disc osteophyte complex resulting in moderate to severe central canal na rrowing with moderate cord deformity. There is also severe bilateral neural foraminal narrowing due t o the uncovertebral and facet hypertrophy. The spinal canal demonstrates a maximal AP diameter of 5 m m. C5-C6: Broad-based posterior disc osteophyte complex with a tiny right paracentral focal disc protrus ion. This abuts and slightly deforms the right anterior cord. There is mild central canal narrowing. There is moderate left and severe right neural foraminal narrowing. C6-C7: Small broad-based posterior disc bulge resulting in mild central canal narrowing. There are se davide right and moderate left neural foraminal narrowing. C7-T1: No significant central canal or neural foraminal narrowing. IMPRESSION: 1. Advanced multilevel cervical spondylosis as described above most pronounced at the C4-C5 and C5-C6 levels. This is similar to the prior study. 2. Stable fusion of the C3-C4 vertebral bodies. 3. Mild anterolisthesis of C2 on C3, unchanged. 4. No acute fractures within the cervical spine. 5. Old moderate anterior wedge-shaped compression deformity at T5. ACT 112: Negative or not required by law. Electronically signed by: Chay Link M.D. 04/02/2020 1:01 PM
--- NOTE | 2020-04-02 13:37 | Hospitalist Progress Note ---
Date of Service April 02, 2020 Assessment & Plan (1) Involuntary movements: With involuntary left-sided movements, left sided intermittent numbness, falls where legs give out, intermittent dysarthria and left-sided facial droop, and with right-sided occipital and right periorbital headaches. Neurological issues intermittently over the last 1 to 2 weeks, headaches have been longer for the last 2 to 3 months With a history of stable moderate carotid artery and vertebral artery disease not likely contributing to current symptoms. Differential includes partial seizures, cervical myelopathy, TIA/CVA Also with very labile and uncontrolled hypertension over the last several months -Stroke order set -Neurological consultation requested further testing including MRI of the C- spine with and without contrast EEG, vitamin D level TSH anti-TPO antibodies urinalysis chest x-ray with transitioning hs ativan to clonazepam and initiating Keppra 04/02/20 after EEG is completed MRI of the brain IMPRESSION: 1. No acute intracranial findings 2. No evidence of acute or subacute infarction 3. White matter disease and age-related involutional change 4. No evidence of intracranial mass MRI Cervical spine IMPRESSION: 1. Advanced multilevel cervical spondylosis as described above most pronounced at the C4-C5 and C5-C6 levels. This is similar to the prior study. 2. Stable fusion of the C3-C4 vertebral bodies. 3. Mild anterolisthesis of C2 on C3, unchanged. 4. No acute fractures within the cervical spine. 5. Old moderate anterior wedge-shaped compression deformity at T5. -Continue aspirin, statin -PT/OT/speech therapy evaluations (2) Dysarthria: As above (3) Numbness and tingling: As above (4) Falls: Likely from focal myoclonus -Had recent echocardiogram in 12/2019 without significant valvular disease and with normal EF -Continue telemetry monitoring PT/OT consults, will likely require inpatient rehab stay (5) Headache: Resolved -Unrevealing MRI of the brain Has attempted injections with pain management-not successful thus far - -Hemp cream that she has at home actually helps-advised her to bring this in from home -Tylenol and ibuprofen as needed (6) Labile hypertension: With hypertensive urgency continue home medications of metoprolol tartrate 75 mg p.o. every morning and 100 mg p.o. every afternoon, clonidine 0.2 mg p.o. twice daily with an extra 0.1 mg p.o. at 4 in the morning when she wakes up every day to go the bathroom, losartan 50 mg p.o. twice daily -Nephrology recently suggested changing to clonidine patch, pt is not interested in starting patch at this time, if starting recommendaitons are place patch, on day 1 keep same po dose, on day 2 reduce po dose to 50%, on day 3 reduce dose to 25% of original, on day 4 stop -Will make her as needed Lasix daily dose of 20 mg once daily -Add on IV hydralazine as needed SBP greater than 180 (7) Renal artery stenosis: renal function remains stable -Follows with nephrology with medical management -Continue aspirin and statin (8) Carotid artery disease: Continue aspirin and statin Recent CT angiogram shows 67% stenosis of the R ICA, 50% stenosis of the LICA (9) Vertebral artery stenosis: Recent CT angiogram head and neck shows left vertebral origin artery 75% stenosis -Follows with vascular surgery symptoms likely not consistent with issues originating from the stenosis (10) GERD (gastroesophageal reflux disease): -Continue daily PPI (11) Hyperlipidemia: Continue statin (12) Anxiety: Continue PRN lorazepam and Paxil 10 mg daily with recommendations to transition the lorazepam to clonazepam per neurology (13) DVT prophylaxis: Lovenox SQ, SCDs PT/OT consults placed Comes from home, lives alone with daughter nearby Admission and Anticipated Discharge Date Admission Date: March 31, 2020 Subjective pt states she did have some tremor and spasm this am. she otherwise has no other complaints Review of Systems Review of Systems: Mild distress and fatigue no headache, blurry or double vision no speech or swallowing issues no chest pain, pressure or palpitations no shortness of breath, cough or wheezes no abdominal pain, nausea or vomiting, diarrhea or constipation no dysuria, hematuria or frequency no focal joint pain or swelling no back pain, CVA tenderness or radicular pain no bruising, bleeding or rashes Has focal tremulous weakness of left arm and leg no complaints or anxiety or depression. Physical Exam Physical Exam: The patient appeared well nourished and normally developed. Vital signs as documented. Head exam is normocephalic atraumatic no scleral icterus Neck is without JVD, thyromegaly, or carotid bruits. Lungs are clear to auscultation, no focal loss of breath sounds Cardiac exam, Rhythm is regular.. No murmurs, rubs or gallops. Abdominal exam reveals normal bowel sounds, soft non tender, no masses Extremities are nonedematous and both pedal pulses are normal. Neurologic exam is alert and oriented, she does have reproducible tremor of the arm and leg worse with the arm her leg shakes and does prevent her from walking smoothly Skin is without bruises or rashes Psychologically is without concerns for anxiety or depression Results & Data Results & Data ([facility]) Vital Signs (Past 12 Hours) Vital Signs Temp Pulse Resp BP Pulse Ox 04/02/20 07:01 97.7 F 55 L 17 190/45 H 95 04/02/20 04:25 53 L 175/63 H PG Care Time/CCT Total # of Minutes Spent Total Time Spent with Patient: Total time spent is greater than 50% in coordination of care (as documented) at patient's floor/unit and/or counseling patient: Coding Level of Care Code 07619 Subseq Hosp Care Lvl 3 Diagnoses Involuntary movements R25.9 Dysarthria R47.1 Numbness and tingling R20.0; R20.2 Falls W19.XXXA Headache R51 Labile hypertension R09.89 Renal artery stenosis I70.1 Carotid artery disease I77.9 Vertebral artery stenosis I65.09 GERD (gastroesophageal reflux disease) K21.9 Hyperlipidemia E78.5 Anxiety F41.9 DVT prophylaxis Z29.9
--- NOTE | 2020-04-02 15:40 | Electroencephalogram ---
EEG Procedure Note Date of Service April 02, 2020 Start / End Times Start Time: 6:15am End Time: 6:35am Referring Physician Juan A Mcdowell History focal myoclonus Home Medication List Home Medications Medication Instructions Recorded Confirmed Type Caltrate 600 plus D 2 tab PO DAILY 10/04/18 03/31/20 History aspirin [Aspir-Low] 81 mg PO DAILY 10/04/18 03/31/20 History lorazepam [Ativan] 0.5 mg PO HS PRN 10/04/18 03/31/20 History losartan [Cozaar] 50 mg PO BID 10/04/18 03/31/20 History omeprazole 20 mg PO DAILY 10/04/18 03/31/20 History paroxetine HCl [Paxil] 10 mg PO DAILY 10/04/18 03/31/20 History atorvastatin 80 mg PO DAILY 12/30/19 03/31/20 History furosemide 20 mg tablet 20 mg PO DAILY PRN tab 03/09/20 03/31/20 History metoprolol tartrate 50 mg tablet See Rx Instructions PO BID tab 03/09/20 03/31/20 History clonidine HCl 0.1 mg tablet 0.2 mg PO BID tab 03/25/20 03/31/20 History ibuprofen 200 mg tablet 400 mg PO DAILY PRN tab 03/25/20 03/31/20 History potassium chloride 20 mEq 20 meq PO DAILY PRN tab 03/25/20 03/31/20 History tablet,extended release cyanocobalamin (vitamin B-12) 0 mcg PO DAILY 03/31/20 03/31/20 History [Vitamin B-12] Inpatient Medication List Aspirin (Ecotrin Ectab) 81 mg PO DAILY [facility] Stop: 05/01/20 08:59 Last Admin: 04/02/20 07:56 Dose: 81 mg Documented by: [id number] Admin: 04/01/20 08:32 Dose: 81 mg Documented by: [id number] Atorvastatin Calcium (Lipitor) 80 mg PO DAILY [facility] Stop: 05/01/20 08:59 Last Admin: 04/02/20 07:59 Dose: 80 mg Documented by: [id number] Admin: 04/01/20 08:32 Dose: 80 mg Documented by: [id number] Clonidine HCl (Catapres) 0.1 mg PO DAILY@0400 [facility] Stop: 05/01/20 03:59 Last Admin: 04/02/20 04:25 Dose: 0.1 mg Documented by: [id number] Admin: 04/01/20 04:05 Dose: 0.1 mg Documented by: [id number] Clonidine HCl (Catapres) 0.2 mg PO BID@0830,2030 [facility] Stop: 04/30/20 20:29 Last Admin: 04/02/20 08:00 Dose: 0.2 mg Documented by: [id number] Admin: 04/01/20 21:21 Dose: 0.2 mg Documented by: [id number] Admin: 04/01/20 08:33 Dose: 0.2 mg Documented by: [id number] Admin: 03/31/20 23:05 Dose: 0.2 mg Documented by: [id number] Cyanocobalamin (Vitamin B-12) 1,000 mcg PO DAILY [facility] Stop: 05/01/20 08:59 Last Admin: 04/02/20 07:57 Dose: 1,000 mcg Documented by: [id number] Admin: 04/01/20 08:32 Dose: 1,000 mcg Documented by: [id number] Enoxaparin Sodium (Lovenox) 30 mg SQ Q24H [facility] Stop: 04/30/20 20:59 Last Admin: 04/01/20 21:21 Dose: 30 mg Documented by: [id number] Admin: 03/31/20 22:43 Dose: 30 mg Documented by: [id number] Furosemide (Lasix) 20 mg PO DAILY [facility] Stop: 05/01/20 08:59 Last Admin: 04/02/20 07:56 Dose: 20 mg Documented by: [id number] Admin: 04/01/20 08:32 Dose: 20 mg Documented by: [id number] Gadobutrol (Gadavist 65ml) 6 ml IV ONCE PRN PRN Reason: Interaction Checking Stop: 04/04/20 21:48 Last Admin: 03/31/20 21:50 Dose: 6 ml Documented by: [id number] Gadobutrol (Gadavist 65ml) 6 ml IV ONCE PRN PRN Reason: Interaction Checking Stop: 04/06/20 12:39 Last Admin: 04/02/20 12:40 Dose: 6 ml Documented by: [id number] Levetiracetam (Keppra) 500 mg PO BID [facility] Stop: 05/02/20 13:29 Last Admin: 04/02/20 14:07 Dose: 500 mg Documented by: [id number] Losartan Potassium (Cozaar) 50 mg PO BID [facility] Stop: 04/30/20 20:59 Last Admin: 04/02/20 08:00 Dose: 50 mg Documented by: [id number] Admin: 04/01/20 21:21 Dose: 50 mg Documented by: [id number] Admin: 04/01/20 08:32 Dose: 50 mg Documented by: [id number] Admin: 03/31/20 22:44 Dose: 50 mg Documented by: [id number] Metoprolol Tartrate (Lopressor) 100 mg PO PM [facility] Stop: 04/30/20 20:59 Last Admin: 04/01/20 21:21 Dose: 100 mg Documented by: [id number] Admin: 03/31/20 22:44 Dose: 100 mg Documented by: [id number] Metoprolol Tartrate (Lopressor) 75 mg PO QAM [facility] Stop: 05/01/20 08:59 Last Admin: 04/02/20 07:57 Dose: 75 mg Documented by: [id number] Admin: 04/01/20 08:32 Dose: 75 mg Documented by: [id number] Multivitamins/Minerals (Caltrate Plus) 2 tab PO DAILY [facility] Stop: 05/01/20 08:59 Last Admin: 04/02/20 07:59 Dose: 2 tab Documented by: [id number] Admin: 04/01/20 08:32 Dose: 2 tab Documented by: [id number] Pantoprazole Sodium (Protonix) 40 mg PO DAILY [facility] Stop: 05/01/20 08:59 Last Admin: 04/02/20 07:56 Dose: 40 mg Documented by: [id number] Admin: 04/01/20 08:32 Dose: 40 mg Documented by: [id number] Paroxetine HCl (Paroxetine Hcl) 10 mg PO HS [facility] Stop: 04/30/20 23:29 Last Admin: 04/01/20 21:22 Dose: 10 mg Documented by: [id number] Admin: 03/31/20 23:42 Dose: 10 mg Documented by: [id number] Discontinued Medications Clonidine HCl (Catapress) 0.2 mg PO BID@08,2029 [facility] Stop: 04/30/20 20:59 Last Admin: 03/31/20 22:55 Dose: Not Given Documented by: [id number] Lorazepam (Ativan) 0.5 mg PO HS PRN PRN Reason: Anxiety Stop: 07/03/20 20:32 Last Admin: 04/02/20 11:21 Dose: 0.5 mg Documented by: [id number] Admin: 04/01/20 18:03 Dose: 0.5 mg Documented by: [id number] Admin: 03/31/20 21:13 Dose: 0.5 mg Documented by: [id number] Description This is a 21 electrode EEG with a single channel dedicated to limited EKG. The electrodes were placed in accordance with the International 10-20 system. History: focal myoclonus Rx: ativan prn Start/Stop: 6:15am/6:35am Attending reading: Yajaira Marquez EEG Description: EEG background: Background was low voltage with predominantly delta/theta slowing observed, consistent with sleep. No well formed posterior dominant rhythm was observed. The EEG is continuous. There is variability and reactivity present. Activation and reactivity: Photic stimulation performed without any abnormalities noted. No photic driving observed. Hyperventilation was not performed. Sleep: Patient was asleep for the majority of the record. Stages I and II of sleep were recorded with normal vertex waves and sleep spindles noted. Epileptiform discharges: No epileptiform discharges were observed. Rhythmic and periodic patterns: None Seizures: None Impression: This was a normal asleep EEG. No seizures or epileptiform discharges were seen. Clinical correlation required (no events of interest captured on this EEG). [facility] Procedure Codes Indication for Procedure (1) Focal myoclonus: Neurology Neurology: 15788 EEG include record awake & sleepy
--- NOTE | 2020-04-02 18:08 | Neurology Progress Note ---
Date of Service April 02, 2020 Assessment & Plan (1) Focal myoclonus: Avril Ramon is an 84 yo woman w/ PMH of HTN, HLD, known carotid artery stenosis, GERD, renal artery stenosis and anxiety/depression who presents to [facility] on 03/31/2020 after a several week history of left upper and left lower extremity jerking with concern for possible TIA. # Focal myoclonus: left-sided, semi-abrupt onset several weeks ago. Ddx includes epilepsia partialis vs 2/2 underlying neurodegenerative process vs other cause. Will complete work-up as below to rule out treatable causes. MRI brain was slightly concerning for possible cortical basal degeneration as midline structures could be consistent with hummingbird sign. MRI of the cervical spine shows severe stenosis at C4-C5 but no infarct or other compressive lesion noted. Routine EEG did not capture seizures consistent with EPC. No signs of infection on UA or chest x-ray -Pending: Anti-TPO antibodies -Replete vitamin D -Start Keppra 500 mg twice daily and changed to Klonopin 0.25 mg nightly #Carotid artery stenosis/vertebral artery stenosis: Stable from prior imaging -Continue aspirin 81 mg daily and atorvastatin 80 mg daily # Hypertension: Consider reducing or stopping metoprolol given ongoing bradycardia as she is interested in minimizing the number of meds she is on Thank you for this interesting consult. Plan of care discussed with primary team. Please call or text questions. (2) Vertebral artery stenosis: Admission and Anticipated Discharge Date Admission Date: March 31, 2020 Subjective NAEs overnight. Continues to have action myoclonus suggested of cortical origin. Interim testing reviewed and notable for low vitamin D 20.2, TSH within normal, UA no infection, Lyme negative, chest x-ray no pneumonia. Anti-TPO antibodies are still pending. MRI of the cervical spine shows severe cervical stenosis at C4-C5 and otherwise multilevel degenerative changes and neuroforaminal stenosis. EEG showed normal sleep however no episodes were captured. Reports that she is feeling a little bit tired today and was inquiring whether or not she could come off some of her medications at home as she would prefer to be on fewer meds. Review of Systems Review of Systems: 14 point review of systems completed and negative except as in HPI. Results & Data ([facility]) Vital Signs (Past 12 Hours) Vital Signs Temp Pulse Resp BP Pulse Ox 04/02/20 15:29 36.3 C L 58 L 20 112/52 L 95 04/02/20 07:01 36.5 C 55 L 17 190/45 H 95 Exam (Neuro) Physical Exam: General Exam: GEN: NAD, sitting in bed. HEENT: No conjunctival injection, no rhinorrhea. CV: RRR, no peripheral edema PULM: Nonlabored respirations on room air. Neuro Exam: MS: Awake and Alert. Oriented to person, place, and date. Speech fluent and appropriate without dysarthria or paraphasic errors. Language intact including naming, comprehension, repetition. Cognition and memory grossly intact. Attention intact. No neglect. CN: Visual jara full. No extinction to double simultaneous stimuli. No optic disc edema on fundoscopic exam. PERRLA OU. EOMI except for inability to bury the sclera of the right eye on lateral gaze, no nystagmus. Facial sensation intact to LT. Facial muscles full and symmetric. Hearing intact to conversation. Uvula midline with symmetric palatal elevation. Shoulder shrug normal. Tongue midline. MOTOR: Normal bulk and tone. No pronator drift. BUE strength 5/5 at deltoids, biceps, triceps, wrist flexors and extensors, and hand grasp bilaterally. BLE strength 5/5 at iliopsoas, hamstrings, quadriceps, tibialis anterior, and gastrocnemius bilaterally. +myoclonus noted with action and on outstretch. REFLEXES: 2+ at biceps, triceps, brachioradialis, absent patella and absent Achilles bilaterally. Toes mute bilaterally. SENSORY: Intact to LT without extinction to double simultaneous stimuli. Vibration and temperature intact throughout. COORDINATION: No dysmetria or ataxia on [id number] bilaterally. Normal Gisell bilaterally. GAIT: Slightly broad based gait, left knee started to jerk rhythmically for several seconds when up and walking with the walker (maintained consciousness). Romberg deferred given fall risk. PG Care Time/CCT Total # of Minutes Spent Total Time Spent with Patient: Total time spent is greater than 50% in coordin ation of care (as documented) at patient's floor/unit and/or counseling patient: Coding Level of Care Code 27400 Subseq Hosp Care Lvl 3 Diagnoses Focal myoclonus G25.3 Vertebral artery stenosis I65.09
[2020-04-02] MEDS: ENOXAPARIN INJ 30 MG/0.3 ML SYR SQ SCH (20:30)
[2020-04-02] MEDS: METOPROLOL TARTRATE 100 MG TAB PO SCH (20:31)
[2020-04-02] MEDS: PARoxetine HCL 10 MG TAB PO SCH (20:32)
[2020-04-02] MEDS ORDERED: clonazePAM 0.25 MG TAB PO SCH (21:00)
[2020-04-02] MEDS ORDERED: clonazePAM 0.5 MG TAB PO SCH (21:00)
[2020-04-03] MEDS: cloNIDine HCL 0.1 MG TAB PO SCH ×2 (04:02→08:51)
[2020-04-03 07:59] LABS: Basophils # (auto) 0.01 K/uL (0-0.2); Basophils % (auto) 0.1 %; Eosinophils # (auto) 0.51 K/uL (0-0.5); Eosinophils % (auto) 5.5 %; Hematocrit (blood only) 33.4 % (37-47); Hemoglobin 11.3 g/dL (12.0-16.0); Immature Granulocytes # (auto) 0.02 K/uL (0.00-0.02); Immature Granulocytes % (auto) 0.2 %; Lymphocytes # (auto) 1.85 K/uL (1.2-3.4); Mean Corpuscular Hemoglobin 29.1 pg (25-34); Mean Corpuscular Hgb Conc 33.8 g/dL (32-36); Mean Corpuscular Volume 86.1 fL (80-100); Mean Platelet Volume 9.9 fL (7.4-10.4); Monocytes # (auto) 0.53 K/uL (0.11-0.59); Monocytes % (auto) 5.7 %; Neutrophils # (auto) 6.33 K/uL (1.4-6.5); Neutrophils % (auto) 68.5 %; Platelet Count 246 K/uL (130-400); RDW Coefficient of Variation 13.6 % (11.5-14.5); RDW Standard Deviation 43.3 fL (36.4-46.3); Red Blood Count 3.88 M/uL (4.2-5.4); White Blood Count 9.25 K/uL (4.8-10.8)
[2020-04-03] MEDS: LOSARTAN POTASSIUM 50 MG TAB PO SCH (08:51)
[2020-04-03 08:52] LABS: BUN Creatinine Ratio 24.5 (10-20); Calcium 9.5 mg/dl (8.5-10.1); Creatinine Clr Calc Pharmacy 24.9 ml/min; Est GFR (Non-African American) 39.7; Potassium 4.8 mmol/L (3.5-5.1)
[2020-04-03] MEDS: FUROSEMIDE 20 MG TAB PO SCH (08:52)
[2020-04-03] MEDS: METOPROLOL TARTRATE 25 MG TAB PO SCH (08:52)
[2020-04-03] MEDS: PANTOprazole 40 MG TAB PO SCH (08:52)
[2020-04-03] MEDS: ATORVASTATIN 40 MG TAB PO SCH (08:52)
[2020-04-03] MEDS: CYANOCOBALAMIN 500 MCG TABLET (VITAMIN B-12) PO SCH (08:53)
--- NOTE | 2020-04-03 10:02 | Neurology Progress Note ---
Date of Service April 03, 2020 Assessment & Plan (1) Focal myoclonus: Avril Ramon is an 84 yo woman w/ PMH of HTN, HLD, known carotid artery stenosis, GERD, renal artery stenosis and anxiety/depression who presents to [facility] on 03/31/2020 after a several week history of left upper and left lower extremity jerking with concern for possible TIA. # Focal myoclonus: left-sided, semi-abrupt onset several weeks ago. Ddx includes epilepsia partialis vs 2/2 underlying neurodegenerative process vs other cause. Will complete work-up as below to rule out treatable causes. MRI brain was slightly concerning for possible cortical basal degeneration as midline structures could be consistent with hummingbird sign. MRI of the cervical spine shows severe stenosis at C4-C5 but no infarct or other compressive lesion noted. Routine EEG did not capture seizures consistent with EPC. No signs of infection on UA or chest x-ray -Pending: Anti-TPO antibodies -Replete vitamin D -Continue Keppra 500 mg twice daily and changed to Klonopin 0.25 mg nightly (can hold klonopin while she adjusts to keppra; okay to start Klonopin in 1 month when she follows up) -Follow-up with neurology in 4 to 6 weeks #Carotid artery stenosis/vertebral artery stenosis: Stable from prior imaging -Continue aspirin 81 mg daily and atorvastatin 80 mg daily # Hypertension: Consider reducing or stopping metoprolol given ongoing bradycardia as she is interested in minimizing the number of meds she is on Thank you for this interesting consult. Plan of care discussed with primary team. Please call or text questions. (2) Vertebral artery stenosis: Admission and Anticipated Discharge Date Admission Date: March 31, 2020 Subjective NAEs overnight. She reports that she will still have intermittent myoclonus of her LUE/LLE. Still feeling tired but not any more increased since starting Keppra. Discussed importance of going to rehab. Can add on Klonopin at night if needed, but can also hold this until later since he is worried about ongoing tiredness. Review of Systems Review of Systems: 14 point review of systems completed and negative except as in HPI. Results & Data ([facility]) Vital Signs (Past 12 Hours) Vital Signs Temp Pulse Resp BP Pulse Ox 04/03/20 08:08 36.7 C 47 L 20 199/78 H 95 04/03/20 00:13 149/68 H 04/02/20 23:00 36.7 C 64 20 198/64 H 96 04/02/20 22:53 175/73 H Exam (Neuro) Physical Exam: General Exam: GEN: NAD, sitting in bed. HEENT: No conjunctival injection, no rhinorrhea. CV: RRR, no peripheral edema PULM: Nonlabored respirations on room air. Neuro Exam: MS: Awake and Alert. Oriented to person, place, and date. Speech fluent and appropriate without dysarthria or paraphasic errors. Language intact including naming, comprehension, repetition. Cognition and memory grossly intact. Attention intact. No neglect. CN: Visual jara full. No extinction to double simultaneous stimuli. No optic disc edema on fundoscopic exam. PERRLA OU. EOMI except for inability to bury the sclera of the right eye on lateral gaze, no nystagmus. Facial sensation intact to LT. Facial muscles full and symmetric. Hearing intact to conversation. Uvula midline with symmetric palatal elevation. Shoulder shrug normal. Tongue midline. MOTOR: Normal bulk and tone. No pronator drift. BUE strength 5/5 at deltoids, biceps, triceps, wrist flexors and extensors, and hand grasp bilaterally. BLE strength 5/5 at iliopsoas, hamstrings, quadriceps, tibialis anterior, and gastrocnemius bilaterally. +myoclonus noted with action and on outstretch. REFLEXES: 2+ at biceps, triceps, brachioradialis, absent patella and absent Achilles bilaterally. Toes mute bilaterally. SENSORY: Intact to LT without extinction to double simultaneous stimuli. Vibration and temperature intact throughout. COORDINATION: No dysmetria or ataxia on [id number] bilaterally. Normal Gisell bilaterally. GAIT: Slightly broad based gait, left knee started to jerk rhythmically for several seconds when up and walking with the walker (maintained consciousness). Romberg deferred given fall risk. PG Care Time/CCT Total # of Minutes Spent Total Time Spent with Patient: Total time spent is greater than 50% in coordination of care (as documented) at patient's floor/unit and/or counseling patient: Coding Level of Care Code 66276 Subseq Hosp Care Lvl 3 Diagnoses Focal myoclonus G25.3 Vertebral artery stenosis I65.09
[2020-04-03] MEDS ORDERED: STROKE PATIENT DISCHARGE STA (10:59)
[2020-04-03] MEDS: ASPIRIN 81 MG ECTAB PO SCH (11:46)
[2020-04-03] MEDS: CALCIUM 600MG + VIT D 400 IU TAB PO SCH (11:46)
--- NOTE | 2020-04-03 16:46 | Discharge Summary ---
Date of Service April 03, 2020 Admission HPI Per Admitting Provider This patient is an 84-year-old female with a history of HTN, right renal artery stenosis, carotid artery and vertebral artery stenosis,chronic diastolic CHF, hyperlipidemia, lumbar stenosis, GERD, insomnia, osteoporosis, and depression, who presents to the ER with approximately 1 to 2 weeks of intermittent involuntary movements of the left lower extremity and left upper extremity, sometimes associated with numbness and tingling. She is also had 2 falls in the last week where she stood up and just felt like her legs gave out but she did not pass out or feel lightheaded. She did not sustain any injuries during these falls. When her left upper and lower extremities are involuntarily moving, she is aware of it but has no control and it is a flexion and extension movement that is fairly significant. She is also been having headaches in the right occipital and right periorbital region almost daily for several months now. She has been receiving injections for this from pain management which are not improving the pain. Her daughter also reports she has noticed intermittent droop of the left side of the patient's face with some dysarthria in the last week or so as well as noticing that the patient leans to the left frequently even when she is in a seated position. She had a recent CT angiogram of the head and neck ordered by her vascular surgeon in [place] and had a telehealth visit with that surgeon today-it again showed stable stenoses of the bilateral carotid arteries and 75% stenosis of the left vertebral artery at the origin, but after describing her recent symptoms as above, her surgeon advised her to come to the hospital for further evaluation. In the ER, CT of the head was negative for acute disease. Her blood pressure has been significantly elevated and the patient reports this has also been ongoing for several months. She has been following with her PCP and with nephrology for this. She has not had any recent changes in her medications. She will be admitted for further evaluation for her neurological symptoms and for hypertensive urgency. Principal Diagnosis focal myoclonus Discharge Exam pt still with occasional twitching of her muscles otherwise is awake and alert Discharge Data Allergies Allergy/AdvReac Type Severity Reaction Status Date / Time adhesive Allergy Unknown RED Verified 03/31/20 18:05 atenolol Allergy Unknown Unknown Verified 03/31/20 18:05 codeine Allergy Unknown Unknown Verified 03/31/20 18:05 indapamide Allergy Unknown Unknown Verified 03/31/20 18:05 Iodinated Contrast Media Allergy Unknown ` Verified 03/31/20 18:05 lisinopril Allergy Unknown Unknown Verified 03/31/20 18:05 nickel Allergy Unknown ALLERGY TO Verified 03/31/20 18:05 "METAL" nifedipine Allergy Unknown Unknown Verified 03/31/20 18:05 verapamil Allergy Unknown Unknown Verified 03/31/20 18:05 Latex, Natural Rubber Allergy Rash Verified 03/31/20 18:05 hydromorphone AdvReac Severe HALLUCINATI Verified 03/25/20 08:58 ON morphine AdvReac Unknown NAUSEA Verified 03/25/20 08:58 Consultations 03/31/20 17:25 ED Decision to Admit Stat 03/31/20 20:33 Consult Case Management - Discharge Planning Routine Consult Neurology Routine Ordered Studies 03/31/20 16:22 CT head/brain wo con Stat 03/31/20 19:07 MR brain wo/w con Urgent 04/02/20 16:59 MR cervical spine wo/w con Routine Hospital Course (1) Involuntary movements: With involuntary left-sided movements, left sided intermittent numbness, falls where legs give out, intermittent dysarthria and left-sided facial droop, and with right-sided occipital and right periorbital headaches. Neurological issues intermittently over the last 1 to 2 weeks, headaches have been longer for the last 2 to 3 months With a history of stable moderate carotid artery and vertebral artery disease not likely contributing to current symptoms. Differential includes partial seizures, cervical myelopathy, TIA/CVA Also with very labile and uncontrolled hypertension over the last several months -Neurological consultation feels is focal myoclonus, EEG, vitamin D level is low will recommend oral supplementation transitioning hs ativan to clonazepam and initiating Keppra 04/02/20 MRI of the brain IMPRESSION: 1. No acute intracranial findings 2. No evidence of acute or subacute infarction 3. White matter disease and age-related involutional change 4. No evidence of intracranial mass MRI Cervical spine IMPRESSION: 1. Advanced multilevel cervical spondylosis as described above most pronounced at the C4-C5 and C5-C6 levels. This is similar to the prior study. 2. Stable fusion of the C3-C4 vertebral bodies. 3. Mild anterolisthesis of C2 on C3, unchanged. 4. No acute fractures within the cervical spine. 5. Old moderate anterior wedge-shaped compression deformity at T5. -Continue aspirin, statin (2) Dysarthria: As above (3) Numbness and tingling: As above (4) Falls: Likely from focal myoclonus -Had recent echocardiogram in 12/2019 without significant valvular disease and with normal EF (5) Headache: Resolved -Unrevealing MRI of the brain Has attempted injections with pain management-not successful thus far - -Hemp cream that she has at home actually helps-advised her to bring this in from home -Tylenol and ibuprofen as needed (6) Labile hypertension: With hypertensive urgency continue home medications of metoprolol tartrate 75 mg p.o. every morning and 100 mg p.o. every afternoon, clonidine 0.2 mg p.o. twice daily with an extra 0.1 mg p.o. at 4 in the morning when she wakes up every day to go the bathroom, losartan 50 mg p.o. twice daily -Nephrology recently suggested changing to clonidine patch, pt is not interested in starting patch at this time, if starting recommendaitons are place patch, on day 1 keep same po dose, on day 2 reduce po dose to 50%, on day 3 reduce dose to 25% of original, on day 4 stop (7) Renal artery stenosis: renal function remains stable -Follows with nephrology with medical management -Continue aspirin and statin (8) Carotid artery disease: Continue aspirin and statin Recent CT angiogram shows 67% stenosis of the R ICA, 50% stenosis of the LICA (9) Vertebral artery stenosis: Recent CT angiogram head and neck shows left vertebral origin artery 75% stenosis -Follows with vascular surgery symptoms likely not consistent with issues originating from the stenosis (10) GERD (gastroesophageal reflux disease): -Continue daily PPI (11) Hyperlipidemia: Continue statin (12) Anxiety: Continue PRN lorazepam and Paxil 10 mg daily with recommendations to transition the lorazepam to clonazepam per neurology Total Time Total Time Spent Total Time Spent (In Minutes): it took greater than 30 minutes to complete this discharge Discharge Plan Discharge Items Patient Disposition: Transfer Inpatient Rehab Fac Reason For Visit: LEFT SIDED NEURO SYMPTOMS Discharge Diagnosis: cortical myoclonus deconditioning Activity: Per Instructions section Activity Comment: per PT/OT at [facility] Non-emergency contact: Primary Care Provider and Neurologist Call non-emergency contact if: you have any medication questions and your symptoms worsen Follow-up/Referrals: Bhavesh Jack MD [Primary Care Provider] - Diet: Regular Addtl Attending Provider Instructions: please follow up with Neurlogy Pending Studies at Discharge: No Stand-Alone Forms: My [facility] Skilled Items Patient informed of condition?: Yes DNR: Yes Discharge Level of Care: Acute rehab Communicable Disease: No Discharge Prognosis: Stable Lines: None Urinary Catheter: No Medications and DC Order Prescriptions: New clonazepam 0.5 mg Tablet 0.25 mg PO HS Qty: 0 RF: 0 aspirin 81 mg Tablet,Delayed Release (Dr/Ec) 81 mg PO DAILY Qty: 0 RF: 0 levetiracetam [Keppra] 500 mg tablet 500 mg PO BID Qty: 60 RF: 0 Continued furosemide 20 mg tablet 20 mg PO DAILY PRN (Reason: FLUID BUILD UP) RF: 0 clonidine HCl 0.1 mg tablet 0.2 mg PO BID RF: 0 losartan [Cozaar] 50 mg tablet 50 mg PO BID RF: 0 paroxetine HCl [Paxil] 10 mg tablet 10 mg PO DAILY RF: 0 omeprazole 20 mg capsule,delayed release(DR/EC) 20 mg PO DAILY RF: 0 Caltrate 600 plus D 600 mg (1,500 mg)-800 unit Tablet,Chewable 2 tab PO DAILY RF: 0 atorvastatin 80 mg Tablet 80 mg PO DAILY RF: 0 cyanocobalamin (vitamin B-12) [Vitamin B-12] 1,000 mcg Tablet 0 mcg PO DAILY RF: 0 Changed metoprolol tartrate 50 mg tablet 75 mg PO BID Qty: 90 RF: 0 Discontinued potassium chloride 20 mEq tablet extended release 20 meq PO DAILY PRN (Reason: TAKE WITH LASIX) RF: 0 aspirin [Aspir-Low] 81 mg Tablet,Delayed Release (Dr/Ec) 81 mg PO DAILY RF: 0 lorazepam [Ativan] 0.5 mg Tablet 0.5 mg PO HS PRN (Reason: Anxiety) RF: 0 ibuprofen 200 mg tablet 400 mg PO DAILY PRN (Reason: Pain) RF: 0 Discharge Orders: Discharge Order (Routine); Ordered 04/03/20 Ordered By: Juan A May/Other Patient Handouts: A1C Admission Data Admit Date/Time: 03/31/20 19:07 Attending Provider: Juan A Mcdowell Admit Provider: Ashley Yan Primary Care Provider: Bhavesh Jack Other Providers: [facility] ; Ashley Yan ; Yajaira Marquez Other Interventions: Discharge Summary Assessment (RN) Last Done: 04/03/20 11:12 DC Date/Time DO NOT enter until pt leaves facility: 04/03/20 14:12 Coding Level of Care Code D/C Day Management >30 mins Diagnoses Involuntary movements R25.9 Dysarthria R47.1 Numbness and tingling R20.0; R20.2 Falls W19.XXXA Headache R51 Labile hypertension R09.89 Renal artery stenosis I70.1 Carotid artery disease I77.9 Vertebral artery stenosis I65.09 GERD (gastroesophageal reflux disease) K21.9 Hyperlipidemia E78.5 Anxiety F41.9
== END 2020-04-03 14:12 | DRG 91 ==
LOC: ED 15:24 → SUATTDRO 19:07 → 2W 19:07